=== PATIENT | male | born 1940 | race Caucasian/White ===

== ENCOUNTER 2018-11-30 18:45 | Inpatient (IN) | payer OTHER ==
--- NOTE | 2018-11-30 20:02 | PDOC ---
History of Present Illness - General Chief Complaint: Hematuria Stated Complaint: CELLULITIS/R.LEG/DIFFICULTY BREATHING Time Seen by Provider: 11/30/18 19:02 - History of Present Illness Initial Comments: Christian De Jesus is a 78yo man with a PMH of NIDDM, ? a-fib, PVD and chronic BLE edema due to venous stasis, treated earlier this year for LLE cellulitis that has now improved who presents to the ED with multiple complaints including new weeping/drainage from the RLE, significantly worsening SOB, and hematuria. He states that he has been increasingly short of breath for the past week and now finds it difficult to walk. Last month he was able to move around the house without difficulty, but he needs to stop after 5-6 feet now. He also notes orthopnea, but he says that he always sits upright to sleep and this has not changed recently. He additionally notes that he has had watery drainage from his right leg for 1-2 days. He says that he was treated for an infection in the left leg, and he "let it go way too long" before being seen, so he wanted to be seen as soon as the drainage started this time. He generally is seen in wound clinic weekly for his chronic LE edema but missed his most recent appointment. He does admit to being poorly compliant with his home medications including his lasix. Mr De Jesus additionally reports that he saw a "small amount of blood" in his urine today. He has had similar episodes in the past and was treated with antibiotics. He did not notice this prior to today. He denies any recent fevers, chills, chest pain, dysuria, or increased warmth, swelling, redness in his legs. Past History - Past Medical History Allergies/Adverse Reactions: Allergies Allergy/AdvReac Type Severity Reaction Status Date / Time No Known Allergies Allergy Verified 11/30/18 18:58 Home Medications: Ambulatory Orders Aspirin [Ecotrin] 81 mg PO DAILY 02/24/16 Metformin HCl [Glucophage] 1,000 mg PO BID 02/24/16 Ramipril 10 mg PO DAILY 02/24/16 Sitagliptin Phosphate [Januvia] 50 mg PO BID 02/24/16 Acetaminophen [Tylenol .Regular Strength -] 650 mg PO Q4H PRN #0 tablet Furosemide [Lasix -] 40 mg PO DAILY #30 tablet 03/03/16 Multivitamin [One-Daily Multi-Vitamin] 1 tab PO DAILY 09/27/18 Diabetes: Yes HTN: Yes Hypercholesterolemia: Yes - Suicide/Smoking/Psychosocial Hx Smoking History: Former smoker Have you smoked in the past 12 months: No If you are a former smoker, when did you quit?: 1989 Information on smoking cessation initiated: No Hx Alcohol Use: No Drug/Substance Use Hx: No Substance Use Type: None Review of Systems - Review of Systems Comments:: General: No fevers, no chills, no weight or appetite change, no malaise HEENT: No changes in vision, no changes in hearing, no congestion, no sore throat CV: No chest pain, no palpitations, + LE edema, +BRITO, +orthopnea Pulm: + SOB, no cough, no wheezing GI: No nausea or vomiting, no change in bowel habits, no melena : No frequency, no urgency, no dysuria, +hematuria Musc: No back pain, no joint swelling, no recent injury Skin: No rash, no lesions, no erythema Endo: No excessive thirst, no heat/cold intolerance Heme: No unusual bruising or bleeding, no swollen glands Neuro: No syncope, no numbness/tingling, no focal weakness Vasc: No claudication, +chronic venous stasis Psych: No recent change in mood, no SI or HI *Physical Exam - Vital Signs Last Vital Signs Temp Pulse Resp BP Pulse Ox 98.5 F 88 18 154/80 80 L 11/30/18 18:50 11/30/18 18:50 11/30/18 18:50 11/30/18 18:50 11/30/18 18:50 - Physical Exam Comments: General: Comfortable, no acute distress HEENT: PERRL, EOMI, MMM, voice normal, normal neck ROM Cards: Irregularly irregular, no murmur appreciated Pulm: Satting well on non-rebreather. Distant breath sounds, no distinct wheezing or crackles appreciated but difficult exam due to habitus. Abd: Soft, nontender, nondistended Ext: b/l LE swelling and skin changes c/w chronic venous stasis. RLE w/ shallow area of broken skin approx 3x5cm on lateral mid leg, clear thin weeping fluid. B /l legs and feet w/ yellow-guardado patchy lesions that appear likely fungal in appearance. No warmth, minimal pitting, no purulence. No TTP Neuro: A&Ox3, CN grossly intact, normal speech, motor/sensory grossly intact and symmetric Psych: Mood appropriate to situation ED Treatment Course - LABORATORY CBC & Chemistry Diagram: 11/30/18 20:00 11/30/18 20:00 - RADIOLOGY Radiology Studies Ordered: Category Date Time Status CHEST X-RAY PORTABLE* [RAD] Stat Radiology 11/30/18 19:32 Ordered Medical Decision Making - Medical Decision Making 11/30/18 19:43 Christian De Jesus is a 78yo man with a PMH of NIDDM, ? a-fib, PVD and chronic BLE edema due to venous stasis who presents with worsening BRITO, now only able to walk 5-6 feet over the past week, new RLE clear drainage since yesterday, and an episode of hematuria today. He was noted to be hypoxic to 80% on arrival and was placed on nonrebreather. - Ddx includes fluid overload due to CHF or CKD given worsening BRITO, leg swelling, orthopnea. Less likely infection. Leg weeping but no s/s of cellulitis including warmth, purulence, tenderness. Less likely undiagnosed lung pathology such as copd given no prior symptoms. Hematuria may be UTI or due to bladder irritation; possibly due to new onset kidney disease causing fluid overload - Sats 80% on RA on arrival. Improved to 98-100% on non-rebreather. Will monitor - CBC, CMP, BNP, trop, EKG, CXR, UA 11/30/18 20:24 - CXR completed, appears to be congested. IV lasix ordered for diuresis - EKG w/ NSR with multiple PVCs. HR 92, borderline QRS duration at 100, left axis deviation. - d/w Dr Frazier. 80mg IV lasix ordered for diuresis 11/30/18 21:28 - Labs reviewed. Notable for BUN/Cr 34/1.7 elevated from 29/1.2 in September. Trop negative. Slightly hyperkalemic at 5.3. BNP elevated at 900. - Microblog sent for admission 11/30/18 22:14 - ABG and bipap ordered due to hypoxia - Spoke to TERRANCE Nick regarding admission; will be admitted to Dr Awad's service - Pt and family updated 11/30/18 23:05 - ABG w/ CO2 at 92. - Mental status declining. When asked how he was tolerating the bipap mask, pt replied "the pages are turning too fast." - Lung exam now w/ improved breath sounds but rales at b/l bases. Will reassess after another 20-30 minutes of bipap - Appears to be diuresing well; has urinated 3x since receiving lasix - Due to CO2 retention and AMS, asked ICU team (in ED currently) to assess Mr De Jesus Discussed with Dr Frazier. Maranda Martins PGY1 *DC/Admit/Observation/Transfer Diagnosis at time of Disposition: KELLI (acute kidney injury), Hypoxia Fluid overload Qualifiers: Hypervolemia type: unspecified Qualified Code(s): E87.70 - Fluid overload, unspecified - Discharge Dispostion Condition at time of disposition: Stable Decision to Admit order: Yes - Referrals - Patient Instructions - Post Discharge Activity
[2018-11-30] MEDS ORDERED: FUROSEMIDE 40 MG/4 ML INJECTABLE VIAL IVPUSH ONE (20:04)
[2018-11-30] MEDS ORDERED: FUROSEMIDE 40 MG/4 ML INJECTABLE VIAL ONE (20:28)
[2018-11-30 20:29] LABS: EPI CELLS 0.8 /HPF (0-5/HPF); HYALINE CASTS 3 /lpf (0-8); URINE APPEARANCE CLEAR; URINE BACTERIA 5.4 /hpf (NEGATIVE); URINE BILIRUBIN NEGATIVE (NEGATIVE); URINE COLOR ORANGE; URINE GLUCOSE (UA) NEGATIVE (NEGATIVE); URINE KETONE NEGATIVE (NEGATIVE); URINE LEUK ESTERASE TRACE (NEGATIVE); URINE NITRITE NEGATIVE (NEGATIVE); URINE PROTEIN TRACE (NEGATIVE); URINE RBC 1309 /hpf (0-4); URINE UROBILINOGEN 0.2 mg/dL (0.2-1.0); URINE WBC 5 /hpf (0-5)
[2018-11-30 20:33] LABS: BASO % 1.2 % (0-2.0); EOS % 1.1 % (0-4.5); HEMATOCRIT 40.1 % (35.4-49); HEMOGLOBIN 12.5 GM/dL (11.7-16.9); MCH 28.7 pg (25.7-33.7); MCHC 31.2 g/dl (32.0-35.9); MEAN PLT VOLUME 8.7 fl (7.5-11.1); MONO % 5.5 % (3.8-10.2); NEUT % 88.2 % (42.8-82.8); PLATELET COUNT 262 K/MM3 (134-434); RBC 4.36 M/mm3 (4.00-5.60); WHITE BLOOD COUNT 10.9 K/mm3 (4.0-10.0)
[2018-11-30 20:55] LABS: ALBUMIN 3.5 g/dl (3.4-5.0); ALK PHOS 89 U/L (45-117); ANION GAP 2 MMOL/L (8-16); BILIRUBIN,TOTAL 0.6 mg/dL (0.2-1); BLOOD UREA NITROGEN 34.4 mg/dL (7-18); CALCIUM 8.8 mg/dL (8.5-10.1); CHLORIDE 101 mmol/L (98-107); CO2 38 mmol/L (21-32); CREATININE 1.7 mg/dL (0.55-1.3); GLUCOSE,RANDOM 158 mg/dL (74-106); POTASSIUM 5.3 mmol/L (3.5-5.1); SGOT/AST 32 U/L (15-37); SGPT/ALT 27 U/L (13-61); SODIUM 141 mmol/L (136-145); TOT PROT 8.2 g/dl (6.4-8.2)
[2018-11-30 22:36] LABS: ARTERIAL BLD GAS O2 SATURATION 97.3 % (95-98); ARTERIAL BLOOD GAS BASE EXCESS 5.6 meq/l (-2-2); ARTERIAL BLOOD GAS PO2 119 mmHg (80-105); ARTERIAL BLOOD GAS pH 7.22 (7.35-7.45)
[2018-11-30 22:42] LABS: ALLENS TEST POSITIVE
[2018-11-30 22:44] LABS: ARTERIAL BLOOD GAS PCO2 92.2 mmHg (35-45)
--- NOTE | 2018-11-30 22:50 | PDOC ---
Documentation entered by Lena Laboy SCRIBE, acting as scribe for Reji Frazier MD. Reij Frazier MD: This documentation has been prepared by the Benoit mazariegos Collisia, SCRIBE, under my direction and personally reviewed by me in its entirety. I confirm that the documentation accurately reflects all work, treatment, procedures, and medical decision making performed by me. Attending Attestation - Resident Resident Name: Maranda Martins - ED Attending Attestation I have performed the following: I have examined & evaluated the patient, The case was reviewed & discussed with the resident, I agree w/resident's findings & plan, Exceptions are as noted - HPI HPI: 11/30/18 21:30 The patient is a 78 year old male with a significant past medical history of diabetes, afib, PVD and chronic bilateral extremity edema secondary to venous stasis who presents to the emergency department with worsening shortness of breath and hematuria for about 2 days. The patient states that he has been experiencing difficulty walking secondary to his worsening shortness of breath. He reports being poorly compliant with his medications at home. The patient reports some blood in his urine today and endorses prior episodes in the past by which he was treated with antibiotics. The patient also endorses some drainage from his right leg for the past 2 days . He states that he was treated prior for an infection in his left leg. The patient denies any other associated symptoms he denies any fever, chills, nausea, vomiting, diarrhea, constipation or other urinary symptoms. He denies any chest pain, headache or dizziness. The patient denies any other complaints. - Physicial Exam PE: 11/30/18 22:29 Vitals: Triage Vital signs reviewed General Appearance: no acute distress, well nourished well developed, Head: Atraumatic, Neck: Supple;No Nucal rigidity Chest Wall: Nontender Cardiac: Regular rate and rhythym, no murmurs, no rubs, no gallops, Lungs: Bilateral crackles at the bases Abdomen: Soft, non distended, normal bowel sounds, non tender to palpation Extremities: Full range of motion to all extremities, bilateral lower extremity swelling with broken spin, clear serosanguineous weeping fluid bilaterally no significant warmth or cellulitis noted Neuro:Strength intact to all extremities, Sensation intact to all extremities Psych: normal mood, normal affect - Critical Care Time Total Critical Care Time: 35 Critical Care Statement: The care of this patient involved high complexity decision making to prevent further life threatening deterioration of the patient 's condition and/or to evaluate & treat vital organ system(s) failure or risk of failure. - Medical Decision Making 11/30/18 21:30 The patient is a 78 year old male with a significant past medical history of diabetes, afib, PVD and chronic bilateral extremity edema secondary to venous stasis who presents to the emergency department with worsening shortness of breath and hematuria for about 2 days. The patient will get chest x-ray, labs and EKG for further evaluation. History and examination consistent with fluid overload likely secondary to noncompliance with diuretics and CHF exacerbation IV Lasix ordered Patient's placed on a nonrebreather. Satting well on nonrebreather ABG ordered we'll place patient on BiPAP Chest x-ray demonstrates congestion labs notable for KELLI mild Reevaluation: ABG performed demonstrates CO2 retention consistent with hypercapnic respiratory failure Patient mentating slightly confused but placed on BiPAP We'll titrate up BiPAP as tolerated We'll admit to medicine on telemetry ICU consulted. Pt. Stable for tele 12/02/18 06:39
[2018-11-30 23:07] LABS: PLATELET ESTIMATE ADEQUATE
--- NOTE | 2018-12-01 | HP ---
Admitting History and Physical - Primary Care Physician PCP: Calli Awad - Admission Chief Complaint: SOB, Hematuria, Drainage from RLE History of Present Illness: This is a 78 y/o man with a PMHx of Chronic Venous Stasis B/L LE, PVD, HTN, HLD , NIDDM, Former Smoker. Who presents to the ED with his spouse for increased SOB , orthopnea, hematuria, clear- yellow drainage to RLE. Patient reports being able to walk only 5-6 steps without becoming SOB. He reports being only able to sleep in a recliner due to his orthopnea. He admits to not taking his Lasix daily. Patient also reports having hematuria 3 weeks ago then it reoccurred today. Patient's spouse reports that the patient missed his wound care appointment to have his legs wrapped, and she noted clear drainage to RLE yesterday. The patient denies fever, chills, cough, dizziness, MONTENEGRO, CP, palpitations, AP, N/V/D, constipation, melena, hematochezia, dysuria. History Source: Patient, Family Member Limitations to Obtaining History: No Limitations - Past Medical History Cardiovascular: Yes: HTN, Hyperlipdemia, Other (chronic venous stasis) Infectious Disease: Yes: MRSA (2016) Endocrine: Yes: Diabetes Mellitus - Smoking History Smoking history: Former smoker Have you smoked in the past 12 months: No If you are a former smoker, when did you quit?: 1989 - Alcohol/Substance Use Hx Alcohol Use: No History of Substance Use: reports: None - Social History Usual Living Arrangement: Yes: With Spouse ADL: Independent History of Recent Travel: No Home Medications - Allergies Allergies/Adverse Reactions: Allergies Allergy/AdvReac Type Severity Reaction Status Date / Time No Known Allergies Allergy Verified 11/30/18 18:58 - Home Medications Home Medications: Ambulatory Orders Aspirin [Ecotrin] 81 mg PO DAILY 02/24/16 Metformin HCl [Glucophage] 1,000 mg PO BID 02/24/16 Ramipril 10 mg PO DAILY 02/24/16 Sitagliptin Phosphate [Januvia] 50 mg PO BID 02/24/16 Acetaminophen [Tylenol .Regular Strength -] 650 mg PO Q4H PRN #0 tablet Furosemide [Lasix -] 40 mg PO DAILY #30 tablet 03/03/16 Multivitamin [One-Daily Multi-Vitamin] 1 tab PO DAILY 04/19/19 Family Disease History - Family Disease History Family History: Unable to Obtain Review of Systems - Review of Systems Constitutional: reports: No Symptoms Eyes: reports: No Symptoms HENT: reports: No Symptoms Neck: reports: No Symptoms Cardiovascular: reports: Edema, Shortness of Breath Respiratory: reports: Orthopnea, SOB, SOB on Exertion, Wheezing Gastrointestinal: reports: No Symptoms Genitourinary: reports: Hematuria Breasts: reports: No Symptoms Reported Musculoskeletal: reports: No Symptoms Integumentary: reports: Blister, Erythema, Wound Neurological: reports: No Symptoms Endocrine: reports: No Symptoms Hematology/Lymphatic: reports: No Symptoms Psychiatric: reports: No Symptoms Pain Intensity: 0 Physical Examination Vital Signs: Vital Signs Temperature 98.5 F 11/30/18 18:50 Pulse Rate 85 11/30/18 23:02 Respiratory Rate 20 11/30/18 21:50 Blood Pressure 128/55 L 11/30/18 21:50 O2 Sat by Pulse Oximetry (%) 100 11/30/18 23:02 Constitutional: Yes: Well Nourished, Mild Distress, Obese Eyes: Yes: WNL, Conjunctiva Clear, EOM Intact, PERRL HENT: Yes: WNL, Atraumatic, Normocephalic Neck: Yes: WNL, Supple, Trachea Midline Cardiovascular: Yes: Regular Rate and Rhythm, S1, S2 Respiratory: Yes: Diminished, On BiPap, Rhonchi, SOB, SOB on Exertion Gastrointestinal: Yes: WNL, Normal Bowel Sounds, Soft, Abdomen, Obese Renal/: Yes: WNL Breast(s): Yes: WNL Musculoskeletal: Yes: WNL Extremities: Yes: Erythema Edema: Yes Edema: LLE: 3+, RLE: 3+ Peripheral Pulses WNL: Yes Integumentary: Yes: Erythema, Venous Stasis Changes Wound/Incision: Yes: Other (yellow plaque lesions to RLE) Neurological: Yes: WNL, Alert, Oriented, Cran Nerves II-XII Intact ...Motor Strength: WNL Psychiatric: Yes: WNL, Alert, Oriented Labs: CBC, BMP 11/30/18 20:00 11/30/18 20:00 Laboratory Results - last 24 hr 11/30/18 11/30/18 11/30/18 20:00 20:00 20:00 WBC 10.9 H RBC 4.36 Hgb 12.5 Hct 40.1 D MCV 92.0 MCH 28.7 MCHC 31.2 L RDW 16.0 H Plt Count 262 MPV 8.7 D Absolute Neuts (auto) 9.6 H Neutrophils % 88.2 H Neutrophils % (Manual) 78.0 Band Neutrophils % 3.0 Lymphocytes % 4.0 L D Lymphocytes % (Manual) 8.0 Monocytes % 5.5 Monocytes % (Manual) 10 Eosinophils % 1.1 Eosinophils % (Manual) 1.0 Basophils % 1.2 D Nucleated RBC % 0 Platelet Estimate Adequate Anticoagulation Therapy Puncture Site ABG pH ABG pCO2 at Pt Temp ABG pO2 at Pt Temp ABG HCO3 ABG O2 Sat (Measured) ABG O2 Content ABG Base Excess Julius Test O2 Delivery Device Oxygen Flow Rate Vent Mode Vent Rate Mechanical Rate Pressure Support Vent Sodium 141 Potassium 5.3 H Chloride 101 Carbon Dioxide 38 H Anion Gap 2 L BUN 34.4 H Creatinine 1.7 H Est GFR (CKD-EPI)AfAm 44.10 Est GFR (CKD-EPI)NonAf 38.05 Random Glucose 158 H Calcium 8.8 Total Bilirubin 0.6 AST 32 ALT 27 Alkaline Phosphatase 89 Creatine Kinase 90 Troponin I < 0.02 B-Natriuretic Peptide 899.5 H Total Protein 8.2 Albumin 3.5 Urine Color Urine Appearance Urine pH Ur Specific [place] Urine Protein Urine Glucose (UA) Urine Ketones Urine Blood Urine Nitrite Urine Bilirubin Urine Urobilinogen Ur Leukocyte Esterase Urine WBC (Auto) Urine RBC (Auto) Urine Casts (Auto) U Epithel Cells (Auto) Urine Bacteria (Auto) 11/30/18 11/30/18 20:14 22:29 WBC RBC Hgb Hct MCV MCH MCHC RDW Plt Count MPV Absolute Neuts (auto) Neutrophils % Neutrophils % (Manual) Band Neutrophils % Lymphocytes % Lymphocytes % (Manual) Monocytes % Monocytes % (Manual) Eosinophils % Eosinophils % (Manual) Basophils % Nucleated RBC % Platelet Estimate Anticoagulation Therapy No Result Required. Puncture Site Left radial ABG pH 7.22 L ABG pCO2 at Pt Temp 92.2 H* ABG pO2 at Pt Temp 119 H ABG HCO3 36.5 H ABG O2 Sat (Measured) 97.3 ABG O2 Content 18.4 ABG Base Excess 5.6 H Julius Test Positive O2 Delivery Device No Result Required. Oxygen Flow Rate Yes Vent Mode No Result Required. Vent Rate No Result Required. Mechanical Rate No Result Required. Pressure Support Vent No Result Required. Sodium Potassium Chloride Carbon Dioxide Anion Gap BUN Creatinine Est GFR (CKD-EPI)AfAm Est GFR (CKD-EPI)NonAf Random Glucose Calcium Total Bilirubin AST ALT Alkaline Phosphatase Creatine Kinase Troponin I B-Natriuretic Peptide Total Protein Albumin Urine Color [place] Urine Appearance Clear Urine pH 5.0 Ur Specific [place] 1.010 Urine Protein Trace Urine Glucose (UA) Negative Urine Ketones Negative Urine Blood 3+ H Urine Nitrite Negative Urine Bilirubin Negative Urine Urobilinogen 0.2 Ur Leukocyte Esterase Trace Urine WBC (Auto) 5 Urine RBC (Auto) 1309 Urine Casts (Auto) 3 U Epithel Cells (Auto) 0.8 Urine Bacteria (Auto) 5.4 Intake & Output 11/28/18 11/29/18 11/30/18 12/01/18 23:59 23:59 23:59 23:59 Intake Total 500 Output Total 2000 Balance -1500 Weight 100 kg Imaging - Results Chest X-ray: Image Reviewed Problem List - Problems (1) CHF exacerbation Code(s): I50.9 - HEART FAILURE, UNSPECIFIED (2) Acute and chronic respiratory failure with hypercapnia Code(s): J96.22 - ACUTE AND CHRONIC RESPIRATORY FAILURE WITH HYPERCAPNIA (3) Venous stasis dermatitis of lower extremity Code(s): I87.2 - VENOUS INSUFFICIENCY (CHRONIC) (PERIPHERAL) (4) KELLI (acute kidney injury) Code(s): N17.9 - ACUTE KIDNEY FAILURE, UNSPECIFIED (5) Hx MRSA infection Code(s): Z86.14 - PERSONAL HISTORY OF METHICILLIN RESIS STAPH INFECTION (6) Lymphedema Code(s): I89.0 - LYMPHEDEMA, NOT ELSEWHERE CLASSIFIED (7) Diabetes Code(s): E11.9 - TYPE 2 DIABETES MELLITUS WITHOUT COMPLICATIONS Qualifiers: Diabetes mellitus complication status: with circulatory complication (8) Hypertension Code(s): I10 - ESSENTIAL (PRIMARY) HYPERTENSION Assessment/Plan This is a 78 y/o man with a PMHx of Chronic Venous Stasis Ulcers B/L LE, PVD, HTN, HLD, NIDDM, Obesity, Former Smoker. Admitted for CHF Excerbation, Acute Respiratory Failure with Hypoxia and Hypercapnia, KELLI, Hematuria, Chronic Venous Stasis Ulcers for further evaluation of their emergent condition. Plan: Admit M/S Continue Bipap Titrate per ABG Appreciate Pulm consult Appreciate Cardiology consult Appreciate ID consult Wound Care Will not empirically treat for Cellulitis secondary to no leukocytosis, pt. is afebrile will defer to ID Monitor CBC, BMP Strict INOs Daily Weight Continue home meds Elevate extremities Isolation Precautions- MRSA hx FEN- Fluid restriction, Replete lytes prn, Low Na Diabetic Diet DVT ppx- OOB, TEDs, Heparin SQ Dispo: Requires Inpatient Care Visit type - Emergency Visit Emergency Visit: Yes ED Registration Date: 11/30/18 Care time: The patient presented to the Emergency Department on the above date and was hospitalized for further evaluation of their emergent condition. - New Patient This patient is new to me today: Yes Date on this admission: 11/30/18 - Critical Care Critical Care patient: No
[2018-12-01 07:20] LABS: BASO % 0.7 % (0-2.0); EOS % 0.6 % (0-4.5); HEMATOCRIT 35.9 % (35.4-49); HEMOGLOBIN 11.3 GM/dL (11.7-16.9); LYMPH % 5.7 % (8-40); MCH 28.7 pg (25.7-33.7); MCHC 31.6 g/dl (32.0-35.9); MEAN CELL VOLUME 90.8 fl (80-96); MEAN PLT VOLUME 8.5 fl (7.5-11.1); MONO % 8.6 % (3.8-10.2); NEUT % 84.4 % (42.8-82.8); PLATELET COUNT 207 K/MM3 (134-434); RBC 3.95 M/mm3 (4.00-5.60); WHITE BLOOD COUNT 10.5 K/mm3 (4.0-10.0)
[2018-12-01 07:40] LABS: BLOOD UREA NITROGEN 35.4 mg/dL (7-18); CALCIUM 8.3 mg/dL (8.5-10.1); CREATININE 1.5 mg/dL (0.55-1.3); MAGNESIUM 2.3 mg/dL (1.8-2.4); PHOSPHOROUS 4.2 mg/dL (2.5-4.9); POTASSIUM 4.5 mmol/L (3.5-5.1)
--- NOTE | 2018-12-01 09:13 | CON.CARD ---
Consult Consult Specialty:: Cardiology Referred by:: Dr. Nick Reason for Consultation:: BRITO, edema - History of Present Illness Chief Complaint: 2 weeks BRITO History of Present Illness: 78 y/o man with a PMHx of Chronic Venous Stasis B/L LE, PVD, HTN, HLD, NIDDM, Former Smoker. Who presents to the ED with his spouse for increased SOB, orthopnea, hematuria, clear- yellow drainage to RLE. Patient reports being able to walk only 5-6 steps without becoming SOB. He reports being only able to sleep in a recliner due to his orthopnea. He admits to not taking his Lasix daily. Patient also reports having hematuria 3 weeks ago then it reoccurred today. Patient's spouse reports that the patient missed his wound care appointment to have his legs wrapped, and she noted clear drainage to RLE yesterday. The patient denies fever, chills, cough, dizziness, [place], CP, palpitations, AP, N/V/D, constipation, melena, hematochezia, dysuria. He denies chest pain. - History Source History Provided By: Patient - Past Medical History Cardio/Vascular: Yes: HTN, Hyperlipdemia, Other (chronic venous stasis) Infectious Disease: Yes: MRSA (2015) Endocrine: Yes: Diabetes Mellitus - Alcohol/Substance Use Hx Alcohol Use: No History of Substance Use: reports: None - Smoking History Smoking history: Former smoker Have you smoked in the past 12 months: No If you are a former smoker, when did you quit?: 1989 - Social History Usual Living Arrangement: With Spouse ADL: Independent History of Recent Travel: No Home Medications - Allergies Allergies/Adverse Reactions: Allergies Allergy/AdvReac Type Severity Reaction Status Date / Time No Known Allergies Allergy Verified 11/30/18 18:58 - Home Medications Home Medications: Ambulatory Orders Aspirin [Ecotrin] 81 mg PO DAILY 02/24/16 Metformin HCl [Glucophage] 1,000 mg PO BID 02/24/16 Ramipril 10 mg PO DAILY 02/24/16 Sitagliptin Phosphate [Januvia] 50 mg PO BID 02/24/16 Acetaminophen [Tylenol .Regular Strength -] 650 mg PO Q4H PRN #0 tablet Furosemide [Lasix -] 40 mg PO DAILY #30 tablet 03/03/16 Multivitamin [One-Daily Multi-Vitamin] 1 tab PO DAILY 09/27/18 Family Disease History - Family Disease History Family History: Unremarkable (not pertinent to this presentation) Review of Systems - Review of Systems Cardiovascular: reports: Edema, Shortness of Breath Respiratory: reports: Exercise Intolerance, SOB on Exertion Gastrointestinal: denies: No Symptoms, Abdominal Pain, Bloating, Constipation, Diarrhea, Dysphagia, Indigestion, Melena, Nausea, Rectal Bleeding, Vomiting, Vomiting Blood, Other Genitourinary: denies: No Symptoms, Burning, Discharge, Dysuria, Flank Pain, Frequency, Hematuria, Incontinence, Lesions, Menses, Pain, Testicular Mass, Testicular Pain, Testicular Swelling, Urgency, Vaginal Bleeding, Other Breasts: denies: No Symptoms Reported, See HPI, Breast Implants, Discharge from Nipple, Lumps, Pain, Skin Changes, Other Musculoskeletal: denies: No Symptoms, Back Pain, Crepitus, Decreased ROM, Extremity Pain, Joint Pain, Joint Swelling, Muscle Pain, Muscle Cramps, Muscle Weakness, Other Integumentary: denies: No Symptoms, Blister, Bruising, Change in Color, Eczema, Erythema, Incision, Lesions, Lump, Pallor, Pruritis, Rash, Wound, Other Neurological: denies: No Symptoms, Change in LOC, Change in Speech, Confusion, Dizziness, Headache, Incoordination, Numbness, Parasthesia, Pre-Existing Deficit , Seizure, Syncope, Tremors, Unsteady Gait, Weakness, Other Endocrine: denies: No Symptoms, Excessive Sweating, Flushing, Increased Hunger, Increased Thirst, Intolerance to Cold, Intolerance to Heat, Unexplained Weight Gain, Unexplained Weight Loss, Other Hematology/Lymphatic: denies: No Symptoms, Easily Bruised, Excessive Bleeding, Swollen Glands, Other Psychiatric: denies: No Symptoms, Altered Sleep Pattern, Anxiety, Depression, Hallucinations, Panic, Paranoia, Suicidal, Other - Risk Factors Known Risk Factors: Yes: Diabetes Mellitus, Hypertension, Smoking Vital Signs: Vital Signs Temperature 98.0 F 12/01/18 06:17 Pulse Rate 83 12/01/18 07:44 Respiratory Rate 20 12/01/18 07:44 Blood Pressure 112/52 L 12/01/18 07:44 O2 Sat by Pulse Oximetry (%) 93 L 12/01/18 08:49 Constitutional: Yes: Calm Neck: Yes: Trachea Midline Respiratory: Yes: Other (rales at bas) Gastrointestinal: Yes: Soft, Abdomen, Obese Cardiovascular: Yes: Regular Rate and Rhythm Edema: Yes Edema: LLE: 3+ (venous stasis), RLE: 3+ (venous stasis) Peripheral Pulses WNL: Yes Neurological: Yes: Alert, Oriented - Other Data Labs, Other Data: CBC, BMP 12/01/18 06:30 12/01/18 06:30 Troponin, BNP 11/30/18 11/30/18 20:00 20:00 Troponin I < 0.02 B-Natriuretic Peptide 899.5 H Troponin, BNP 11/30/18 11/30/18 20:00 20:00 Troponin I < 0.02 B-Natriuretic Peptide 899.5 H Laboratory Tests 11/30/18 11/30/18 12/01/18 20:00 20:00 06:30 WBC 10.5 H Hgb 11.3 L Plt Count 207 D Sodium Potassium BUN Creatinine Random Glucose Calcium Phosphorus Magnesium Creatine Kinase 90 Troponin I < 0.02 B-Natriuretic Peptide 899.5 H 12/01/18 06:30 WBC Hgb Plt Count Sodium 144 Potassium 4.5 BUN 35.4 H Creatinine 1.5 H Random Glucose 141 H Calcium 8.3 L Phosphorus 4.2 Magnesium 2.3 Creatine Kinase Troponin I B-Natriuretic Peptide NSR, Left axis, VPCs. Echo: Pending Imaging - Results Chest X-ray: Image Reviewed (increased PVC) EKG: Image Reviewed Assessment/Plan IMP: 1. Acute on chronic CHF 2. Chronic HTN, suspected hypertensive heart disease 3. DM 4. Chronic venous stasis. 5. Acute on chronic renal insuffiency REC: 1. IV lasix, daily weights and BMP to follow renal fxn 2. Telemetry 3. Echo for EF assessment. 4. Cont JOSESITO-I 5. DVT prophylaxis. 6. Treatment of venous stasis and possible superimposed cellulitis as per PMD 7. When euvolemic, will need ischemic evaluation. Thank you.
--- NOTE | 2018-12-01 09:14 | EKG ---
Test Reason : Blood Pressure : / mmHG Vent. Rate : 092 BPM Atrial Rate : 092 BPM P-R Int : 170 ms QRS Dur : 100 ms QT Int : 376 ms P-R-T Axes : 057 -57 079 degrees QTc Int : 464 ms SINUS RHYTHM WITH FREQUENT PREMATURE VENTRICULAR COMPLEXES POSSIBLE LEFT ATRIAL ENLARGEMENT LEFT AXIS DEVIATION ABNORMAL ECG WHEN COMPARED WITH ECG OF 04-OCT-2015 07:02, QT HAS LENGTHENED Confirmed by JONG CARRILLO, FABIANA ([id number]) on 12/01/2018 9:13:47 AM Referred By: Confirmed By:FABIANA SUNSHINE MD
--- NOTE | 2018-12-01 09:22 | PN ---
Progress Note (short form) - Note Progress Note: Examined in ER this AM Awake and alert telling me about his , he is aware of surroundings has sob he is sob when speaking has weaping of skin in legs pain in right leg Vital Signs - 24 hr 11/30/18 11/30/18 11/30/18 18:50 19:05 19:06 Temperature 98.5 F Pulse Rate 88 Pulse Rate [ Apical] Pulse Rate [ Left Apical] Respiratory 18 Rate Blood Pressure 154/80 Blood Pressure [Left Arm] O2 Sat by Pulse 80 L 62 L 93 L Oximetry (%) 11/30/18 11/30/18 11/30/18 19:07 20:18 20:32 Temperature Pulse Rate Pulse Rate [ Apical] Pulse Rate [ 88 87 42 L Left Apical] Respiratory 20 Rate Blood Pressure Blood Pressure 153/73 [Left Arm] O2 Sat by Pulse 99 100 99 Oximetry (%) 11/30/18 11/30/18 11/30/18 21:06 21:30 21:49 Temperature 98.1 F Pulse Rate 82 Pulse Rate [ Apical] Pulse Rate [ 89 87 Left Apical] Respiratory 20 20 18 Rate Blood Pressure 160/90 Blood Pressure 149/62 133/67 [Left Arm] O2 Sat by Pulse 98 100 Oximetry (%) 11/30/18 11/30/18 11/30/18 21:50 22:50 23:02 Temperature Pulse Rate 85 Pulse Rate [ Apical] Pulse Rate [ 92 H Left Apical] Respiratory 20 Rate Blood Pressure Blood Pressure 128/55 L [Left Arm] O2 Sat by Pulse 100 100 100 Oximetry (%) 12/01/18 12/01/18 12/01/18 00:30 01:49 06:17 Temperature 97.9 F 98.0 F Pulse Rate 83 Pulse Rate [ Apical] Pulse Rate [ 90 Left Apical] Respiratory 16 16 Rate Blood Pressure 107/67 Blood Pressure 127/63 [Left Arm] O2 Sat by Pulse 93 L 98 Oximetry (%) 12/01/18 12/01/18 07:44 08:49 Temperature Pulse Rate Pulse Rate [ 83 Apical] Pulse Rate [ Left Apical] Respiratory 20 Rate Blood Pressure Blood Pressure 112/52 L [Left Arm] O2 Sat by Pulse 98 93 L Oximetry (%) Current Medications Generic Name Dose Route Start Last Admin Trade Name Freq PRN Reason Stop Dose Admin Aspirin 81 mg 12/01/18 10:00 Ecotrin - PO DAILY SHRADDHA Furosemide 40 mg 12/01/18 14:00 Lasix Injection - IVPUSH BID@0600,1400 [facility] Multivitamins/Minerals/Vitamin C 1 tab 12/01/18 10:00 Tab-A-Vit - PO DAILY SHRADDHA Ramipril 10 mg 12/01/18 10:00 Altace - PO DAILY SHRADDHA Sitagliptin Phosphate 50 mg 12/01/18 07:00 Januvia - PO BIDAC [facility] Laboratory Results - last 24 hr 11/30/18 11/30/18 11/30/18 20:00 20:00 20:00 WBC 10.9 H RBC 4.36 Hgb 12.5 Hct 40.1 D MCV 92.0 MCH 28.7 MCHC 31.2 L RDW 16.0 H Plt Count 262 MPV 8.7 D Absolute Neuts (auto) 9.6 H Neutrophils % 88.2 H Neutrophils % (Manual) 78.0 Band Neutrophils % 3.0 Lymphocytes % 4.0 L D Lymphocytes % (Manual) 8.0 Monocytes % 5.5 Monocytes % (Manual) 10 Eosinophils % 1.1 Eosinophils % (Manual) 1.0 Basophils % 1.2 D Nucleated RBC % 0 Platelet Estimate Adequate Anticoagulation Therapy Puncture Site ABG pH ABG pCO2 at Pt Temp ABG pO2 at Pt Temp ABG HCO3 ABG O2 Sat (Measured) ABG O2 Content ABG Base Excess Julius Test O2 Delivery Device Oxygen Flow Rate Vent Mode Vent Rate Mechanical Rate Pressure Support Vent Sodium 141 Potassium 5.3 H Chloride 101 Carbon Dioxide 38 H Anion Gap 2 L BUN 34.4 H Creatinine 1.7 H Est GFR (CKD-EPI)AfAm 44.10 Est GFR (CKD-EPI)NonAf 38.05 POC Glucometer Random Glucose 158 H Calcium 8.8 Phosphorus Magnesium Total Bilirubin 0.6 AST 32 ALT 27 Alkaline Phosphatase 89 Creatine Kinase 90 Troponin I < 0.02 B-Natriuretic Peptide 899.5 H Total Protein 8.2 Albumin 3.5 Urine Color Urine Appearance Urine pH Ur Specific [place] Urine Protein Urine Glucose (UA) Urine Ketones Urine Blood Urine Nitrite Urine Bilirubin Urine Urobilinogen Ur Leukocyte Esterase Urine WBC (Auto) Urine RBC (Auto) Urine Casts (Auto) U Epithel Cells (Auto) Urine Bacteria (Auto) 06/22/19 06/22/19 06/23/19 20:14 22:29 06:09 WBC RBC Hgb Hct MCV MCH MCHC RDW Plt Count MPV Absolute Neuts (auto) Neutrophils % Neutrophils % (Manual) Band Neutrophils % Lymphocytes % Lymphocytes % (Manual) Monocytes % Monocytes % (Manual) Eosinophils % Eosinophils % (Manual) Basophils % Nucleated RBC % Platelet Estimate Anticoagulation Therapy No Result Required. Puncture Site Left radial ABG pH 7.22 L ABG pCO2 at Pt Temp 92.2 H* ABG pO2 at Pt Temp 119 H ABG HCO3 36.5 H ABG O2 Sat (Measured) 97.3 ABG O2 Content 18.4 ABG Base Excess 5.6 H Julius Test Positive O2 Delivery Device No Result Required. Oxygen Flow Rate Yes Vent Mode No Result Required. Vent Rate No Result Required. Mechanical Rate No Result Required. Pressure Support Vent No Result Required. Sodium Potassium Chloride Carbon Dioxide Anion Gap BUN Creatinine Est GFR (CKD-EPI)AfAm Est GFR (CKD-EPI)NonAf POC Glucometer 142 Random Glucose Calcium Phosphorus Magnesium Total Bilirubin AST ALT Alkaline Phosphatase Creatine Kinase Troponin I B-Natriuretic Peptide Total Protein Albumin Urine Color [place] Urine Appearance Clear Urine pH 5.0 Ur Specific [place] 1.010 Urine Protein Trace Urine Glucose (UA) Negative Urine Ketones Negative Urine Blood 3+ H Urine Nitrite Negative Urine Bilirubin Negative Urine Urobilinogen 0.2 Ur Leukocyte Esterase Trace Urine WBC (Auto) 5 Urine RBC (Auto) 1309 Urine Casts (Auto) 3 U Epithel Cells (Auto) 0.8 Urine Bacteria (Auto) 5.4 12/01/18 12/01/18 06:30 06:30 WBC 10.5 H RBC 3.95 L Hgb 11.3 L Hct 35.9 MCV 90.8 MCH 28.7 MCHC 31.6 L RDW 16.0 H Plt Count 207 D MPV 8.5 Absolute Neuts (auto) 8.8 H Neutrophils % 84.4 H Neutrophils % (Manual) Band Neutrophils % Lymphocytes % 5.7 L D Lymphocytes % (Manual) Monocytes % 8.6 Monocytes % (Manual) Eosinophils % 0.6 Eosinophils % (Manual) Basophils % 0.7 Nucleated RBC % 0 Platelet Estimate Anticoagulation Therapy Puncture Site ABG pH ABG pCO2 at Pt Temp ABG pO2 at Pt Temp ABG HCO3 ABG O2 Sat (Measured) ABG O2 Content ABG Base Excess Julius Test O2 Delivery Device Oxygen Flow Rate Vent Mode Vent Rate Mechanical Rate Pressure Support Vent Sodium 144 Potassium 4.5 Chloride 101 Carbon Dioxide 37 H Anion Gap 6 L BUN 35.4 H Creatinine 1.5 H Est GFR (CKD-EPI)AfAm 51.31 Est GFR (CKD-EPI)NonAf 44.27 POC Glucometer Random Glucose 141 H Calcium 8.3 L Phosphorus 4.2 Magnesium 2.3 Total Bilirubin AST ALT Alkaline Phosphatase Creatine Kinase Troponin I B-Natriuretic Peptide Total Protein Albumin Urine Color Urine Appearance Urine pH Ur Specific [place] Urine Protein Urine Glucose (UA) Urine Ketones Urine Blood Urine Nitrite Urine Bilirubin Urine Urobilinogen Ur Leukocyte Esterase Urine WBC (Auto) Urine RBC (Auto) Urine Casts (Auto) U Epithel Cells (Auto) Urine Bacteria (Auto) obese S1 S2 RRR Lungs decreased breath sounds B/L crackles+ abd- soft, obese, NT edema + rt leg erythema, edema >left chronic venous changes PLAN on BIPAP iv antibiotics pulmonary ,ID eval iv lasix continue with meds Problem List - Problems (1) KELLI (acute kidney injury) Code(s): N17.9 - ACUTE KIDNEY FAILURE, UNSPECIFIED (2) CHF exacerbation Code(s): I50.9 - HEART FAILURE, UNSPECIFIED (3) Fluid overload Code(s): E87.70 - FLUID OVERLOAD, UNSPECIFIED Qualifiers: Hypervolemia type: unspecified Qualified Code(s): E87.70 - Fluid overload, unspecified (4) Cellulitis of right leg Code(s): L03.115 - CELLULITIS OF RIGHT LOWER LIMB (5) Hypertension Code(s): I10 - ESSENTIAL (PRIMARY) HYPERTENSION
[2018-12-01] MEDS ORDERED: PIPERACILLIN/TAZOB 4.5 GM 4.5 GM in DEXTROSE 5%-WATER 100 ML IVPB SCH ×2 (10:45→11:00)
--- NOTE | 2018-12-01 10:45 | PN ---
Teaching Attending Note Name of Resident: Raheem Castanon ATTENDING PHYSICIAN STATEMENT I saw and evaluated the patient. I reviewed the resident's note and discussed the case with the resident. I agree with the resident's findings and plan as documented. SUBJECTIVE: Patient seen and examined in the ER. 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 COPD). Admitted via the ER due to increased SOB, orthopnea, and yellow drainage of RLE. Placed on NIPPV support and was apparently AAO x 3. On exam he is drowsy but arousble. He is able to tell me his name but does not know where he is and his mental status is now alternated within the hour. I placed him back on NIPPV support and the settings were adjusted for anticipated hypercapnea. Intake & Output 11/28/18 11/29/18 11/30/18 12/01/18 23:59 23:59 23:59 23:59 Intake Total 500 120 Output Total 2000 1000 Balance -1500 -880 Weight 220 lb 7.396 oz Last Vital Signs Temp Pulse Resp BP Pulse Ox 98.0 F 83 20 112/52 L 93 L 12/01/18 06:17 12/01/18 07:44 12/01/18 07:44 12/01/18 07:44 12/01/18 08:49 Active Medications Aspirin (Ecotrin -) 81 mg PO DAILY SHRADDHA Furosemide (Lasix Injection -) 40 mg IVPUSH BID@0600,1400 SHRADD[facility] Multivitamins/Minerals/Vitamin C (Tab-A-Vit -) 1 tab PO DAILY SHRADDHA Ramipril (Altace -) 10 mg PO DAILY SHRADDHA Sitagliptin Phosphate (Januvia -) 50 mg PO BIDAC SHRADDHA Constitutional: Yes: Drowsy but arousable, confused Neck: Yes: Trachea Midline Respiratory: Yes: few scattered rhonchi Gastrointestinal: Yes: Soft, Abdomen, Obese Cardiovascular: Yes: Regular Rate and Rhythm Edema: Yes Edema: LLE: 3+ (venous stasis), RLE: 3+ (venous stasis) Peripheral Pulses WNL: Yes Neurological: Yes: Confused, non-focal - Other Data Labs, Other Data: Laboratory Results - last 24 hr 11/30/18 11/30/18 11/30/18 20:00 20:00 20:00 WBC 10.9 H RBC 4.36 Hgb 12.5 Hct 40.1 D MCV 92.0 MCH 28.7 MCHC 31.2 L RDW 16.0 H Plt Count 262 MPV 8.7 D Absolute Neuts (auto) 9.6 H Neutrophils % 88.2 H Neutrophils % (Manual) 78.0 Band Neutrophils % 3.0 Lymphocytes % 4.0 L D Lymphocytes % (Manual) 8.0 Monocytes % 5.5 Monocytes % (Manual) 10 Eosinophils % 1.1 Eosinophils % (Manual) 1.0 Basophils % 1.2 D Nucleated RBC % 0 Platelet Estimate Adequate Anticoagulation Therapy Puncture Site ABG pH ABG pCO2 at Pt Temp ABG pO2 at Pt Temp ABG HCO3 ABG O2 Sat (Measured) ABG O2 Content ABG Base Excess Julius Test O2 Delivery Device Oxygen Flow Rate Vent Mode Vent Rate Mechanical Rate Pressure Support Vent Sodium 141 Potassium 5.3 H Chloride 101 Carbon Dioxide 38 H Anion Gap 2 L BUN 34.4 H Creatinine 1.7 H Est GFR (CKD-EPI)AfAm 44.10 Est GFR (CKD-EPI)NonAf 38.05 POC Glucometer Random Glucose 158 H Calcium 8.8 Phosphorus Magnesium Total Bilirubin 0.6 AST 32 ALT 27 Alkaline Phosphatase 89 Creatine Kinase 90 Troponin I < 0.02 B-Natriuretic Peptide 899.5 H Total Protein 8.2 Albumin 3.5 Urine Color Urine Appearance Urine pH Ur Specific [place] Urine Protein Urine Glucose (UA) Urine Ketones Urine Blood Urine Nitrite Urine Bilirubin Urine Urobilinogen Ur Leukocyte Esterase Urine WBC (Auto) Urine RBC (Auto) Urine Casts (Auto) U Epithel Cells (Auto) Urine Bacteria (Auto) 11/30/18 11/30/18 12/01/18 20:14 22:29 06:09 WBC RBC Hgb Hct MCV MCH MCHC RDW Plt Count MPV Absolute Neuts (auto) Neutrophils % Neutrophils % (Manual) Band Neutrophils % Lymphocytes % Lymphocytes % (Manual) Monocytes % Monocytes % (Manual) Eosinophils % Eosinophils % (Manual) Basophils % Nucleated RBC % Platelet Estimate Anticoagulation Therapy No Result Required. Puncture Site Left radial ABG pH 7.22 L ABG pCO2 at Pt Temp 92.2 H* ABG pO2 at Pt Temp 119 H ABG HCO3 36.5 H ABG O2 Sat (Measured) 97.3 ABG O2 Content 18.4 ABG Base Excess 5.6 H Julius Test Positive O2 Delivery Device No Result Required. Oxygen Flow Rate Yes Vent Mode No Result Required. Vent Rate No Result Required. Mechanical Rate No Result Required. Pressure Support Vent No Result Required. Sodium Potassium Chloride Carbon Dioxide Anion Gap BUN Creatinine Est GFR (CKD-EPI)AfAm Est GFR (CKD-EPI)NonAf POC Glucometer 142 Random Glucose Calcium Phosphorus Magnesium Total Bilirubin AST ALT Alkaline Phosphatase Creatine Kinase Troponin I B-Natriuretic Peptide Total Protein Albumin Urine Color [place] Urine Appearance Clear Urine pH 5.0 Ur Specific [place] 1.010 Urine Protein Trace Urine Glucose (UA) Negative Urine Ketones Negative Urine Blood 3+ H Urine Nitrite Negative Urine Bilirubin Negative Urine Urobilinogen 0.2 Ur Leukocyte Esterase Trace Urine WBC (Auto) 5 Urine RBC (Auto) 1309 Urine Casts (Auto) 3 U Epithel Cells (Auto) 0.8 Urine Bacteria (Auto) 5.4 12/01/18 12/01/18 06:30 06:30 WBC 10.5 H RBC 3.95 L Hgb 11.3 L Hct 35.9 MCV 90.8 MCH 28.7 MCHC 31.6 L RDW 16.0 H Plt Count 207 D MPV 8.5 Absolute Neuts (auto) 8.8 H Neutrophils % 84.4 H Neutrophils % (Manual) Band Neutrophils % Lymphocytes % 5.7 L D Lymphocytes % (Manual) Monocytes % 8.6 Monocytes % (Manual) Eosinophils % 0.6 Eosinophils % (Manual) Basophils % 0.7 Nucleated RBC % 0 Platelet Estimate Anticoagulation Therapy Puncture Site ABG pH ABG pCO2 at Pt Temp ABG pO2 at Pt Temp ABG HCO3 ABG O2 Sat (Measured) ABG O2 Content ABG Base Excess Julius Test O2 Delivery Device Oxygen Flow Rate Vent Mode Vent Rate Mechanical Rate Pressure Support Vent Sodium 144 Potassium 4.5 Chloride 101 Carbon Dioxide 37 H Anion Gap 6 L BUN 35.4 H Creatinine 1.5 H Est GFR (CKD-EPI)AfAm 51.31 Est GFR (CKD-EPI)NonAf 44.27 POC Glucometer Random Glucose 141 H Calcium 8.3 L Phosphorus 4.2 Magnesium 2.3 Total Bilirubin AST ALT Alkaline Phosphatase Creatine Kinase Troponin I B-Natriuretic Peptide Total Protein Albumin Urine Color Urine Appearance Urine pH Ur Specific [place] Urine Protein Urine Glucose (UA) Urine Ketones Urine Blood Urine Nitrite Urine Bilirubin Urine Urobilinogen Ur Leukocyte Esterase Urine WBC (Auto) Urine RBC (Auto) Urine Casts (Auto) U Epithel Cells (Auto) Urine Bacteria (Auto) Imaging - Results Chest X-ray: Image Reviewed (increased PVC) EKG: Image Reviewed Assessment/Plan Acute on chronic Hypercapneic Respiratory Failure Acute on chronic CHF Chronic HTN DM Do not suspect PNA 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 Acute on chronic renal insuffiency Chronic Venous stasis R/O Cellulitis Patient was placed back on NIPPV support Check ABG in 1 hour Low threshold for intubation if mental status does not improve Aspiration precautions IV lasix BD TX ABX coverage for possible cellulitis Can monitor off systemic steroids for now VTE prophylaxis Requires ICU monitoring Dr Chavez Critical care time spent in reviewing chart, evaluating patient and formulating plan - 36 minutes.
[2018-12-01 11:13] LABS: ARTERIAL BLD GAS O2 SATURATION 92.7 % (95-98); ARTERIAL BLOOD GAS PO2 71.8 mmHg (80-105); ARTERIAL BLOOD GAS pH 7.33 (7.35-7.45)
[2018-12-01 11:14] LABS: ALLENS TEST POSITIVE
[2018-12-01 11:17] LABS: ARTERIAL BLOOD GAS PCO2 71.8 mmHg (35-45)
[2018-12-01] MEDS ORDERED: PIPERACILLIN/TAZOB 4.5 GM 4.5 GM/100 ML BAG IVPB ONE (11:22)
--- NOTE | 2018-12-01 14:08 | CONSULT ---
Consultation: REQUESTING PROVIDER: CONSULT REQUEST: We have been asked to medically evaluate this patient for ICU. HISTORY OF PRESENT ILLNESS: Pt is a 78 y/o M with PMH Chronic Venous Stasis B/L LE, PVD, HTN, HLD, NIDDM, Former Smoker who presented to ED with SOB. At the time of my interview, pt was disoriented and not able to give history. Hx taken from ED staff and records. Pt had evidently been noncompliant with lasix and was unable to lay flat. He also missed his wound care appointment. Initial ABG in ED revealed hypercapnia. REVIEW OF SYSTEMS: CONSTITUTIONAL: Absent: fever, chills, diaphoresis, generalized weakness, malaise, loss of appetite, weight change HEENT: Absent: rhinorrhea, nasal congestion, throat pain, throat swelling, difficulty swallowing, mouth swelling, ear pain, eye pain, visual changes CARDIOVASCULAR: orthopnea Absent: chest pain, syncope, palpitations, irregular heart rate, lightheadedness , peripheral edema RESPIRATORY: shortness of breath Absent: cough,, dyspnea with exertion, orthopnea, wheezing, stridor, hemoptysis GASTROINTESTINAL: Absent: abdominal pain, abdominal distension, nausea, vomiting, diarrhea, constipation, melena, hematochezia GENITOURINARY: Absent: dysuria, frequency, urgency, hesitancy, hematuria, flank pain, genital pain MUSCULOSKELETAL: Absent: myalgia, arthralgia, joint swelling, back pain, neck pain SKIN: Absent: rash, itching, pallor HEMATOLOGIC/IMMUNOLOGIC: Absent: easy bleeding, easy bruising, lymphadenopathy, frequent infections ENDOCRINE: Absent: unexplained weight gain, unexplained weight loss, heat intolerance, cold intolerance NEUROLOGIC: Absent: headache, focal weakness or paresthesias, dizziness, unsteady gait, seizure, mental status changes, bladder or bowel incontinence PSYCHIATRIC: Absent: anxiety, depression, suicidal or homicidal ideation, hallucinations. PHYSICAL EXAMINATION Vital Signs - 24 hr 11/30/18 11/30/18 11/30/18 18:50 19:05 19:06 Temperature 98.5 F Pulse Rate 88 Pulse Rate [ Apical] Pulse Rate [ Left Apical] Respiratory 18 Rate Blood Pressure 154/80 Blood Pressure [Left Arm] O2 Sat by Pulse 80 L 62 L 93 L Oximetry (%) 11/30/18 11/30/18 11/30/18 19:07 20:18 20:32 Temperature Pulse Rate Pulse Rate [ Apical] Pulse Rate [ 88 87 42 L Left Apical] Respiratory 20 Rate Blood Pressure Blood Pressure 153/73 [Left Arm] O2 Sat by Pulse 99 100 99 Oximetry (%) 11/30/18 11/30/18 11/30/18 21:06 21:30 21:49 Temperature 98.1 F Pulse Rate 82 Pulse Rate [ Apical] Pulse Rate [ 89 87 Left Apical] Respiratory 20 20 18 Rate Blood Pressure 160/90 Blood Pressure 149/62 133/67 [Left Arm] O2 Sat by Pulse 98 100 Oximetry (%) 11/30/18 11/30/18 11/30/18 21:50 22:50 23:02 Temperature Pulse Rate 85 Pulse Rate [ Apical] Pulse Rate [ 92 H Left Apical] Respiratory 20 Rate Blood Pressure Blood Pressure 128/55 L [Left Arm] O2 Sat by Pulse 100 100 100 Oximetry (%) 12/01/18 12/01/18 12/01/18 00:30 01:49 06:17 Temperature 97.9 F 98.0 F Pulse Rate 83 Pulse Rate [ Apical] Pulse Rate [ 90 Left Apical] Respiratory 16 16 Rate Blood Pressure 107/67 Blood Pressure 127/63 [Left Arm] O2 Sat by Pulse 93 L 98 Oximetry (%) 12/01/18 12/01/18 12/01/18 07:44 08:49 11:00 Temperature Pulse Rate Pulse Rate [ 83 85 Apical] Pulse Rate [ Left Apical] Respiratory 20 20 Rate Blood Pressure Blood Pressure 112/52 L 116/55 L [Left Arm] O2 Sat by Pulse 98 93 L 98 Oximetry (%) 12/01/18 12/01/18 12/01/18 12:04 12:30 13:01 Temperature 98.1 F Pulse Rate 83 Pulse Rate [ 73 Apical] Pulse Rate [ Left Apical] Respiratory 22 H 20 Rate Blood Pressure 147/68 Blood Pressure 114/58 L [Left Arm] O2 Sat by Pulse 98 96 Oximetry (%) 12/01/18 13:18 Temperature Pulse Rate Pulse Rate [ Apical] Pulse Rate [ Left Apical] Respiratory 20 Rate Blood Pressure Blood Pressure [Left Arm] O2 Sat by Pulse 97 Oximetry (%) Gen: comfortable, AAOx1. Follows commands. On bilevel HEENT: NCAT, EOMI, PERRL Neck: supple, jvd Cardio: extrasystoles, s1s2, no mrg appreciated Pulm: bibasilar crackles Abd: obese, soft, nontender Ext: 2+ edema, 2+ distal pulses, warm Laboratory Results - last 24 hr 11/30/18 11/30/18 11/30/18 20:00 20:00 20:00 WBC 10.9 H RBC 4.36 Hgb 12.5 Hct 40.1 D MCV 92.0 MCH 28.7 MCHC 31.2 L RDW 16.0 H Plt Count 262 MPV 8.7 D Absolute Neuts (auto) 9.6 H Neutrophils % 88.2 H Neutrophils % (Manual) 78.0 Band Neutrophils % 3.0 Lymphocytes % 4.0 L D Lymphocytes % (Manual) 8.0 Monocytes % 5.5 Monocytes % (Manual) 10 Eosinophils % 1.1 Eosinophils % (Manual) 1.0 Basophils % 1.2 D Nucleated RBC % 0 Platelet Estimate Adequate Anticoagulation Therapy Puncture Site ABG pH ABG pCO2 at Pt Temp ABG pO2 at Pt Temp ABG HCO3 ABG O2 Sat (Measured) ABG O2 Content ABG Base Excess Julius Test O2 Delivery Device Oxygen Flow Rate Vent Mode Vent Rate Mechanical Rate Pressure Support Vent Sodium 141 Potassium 5.3 H Chloride 101 Carbon Dioxide 38 H Anion Gap 2 L BUN 34.4 H Creatinine 1.7 H Est GFR (CKD-EPI)AfAm 44.10 Est GFR (CKD-EPI)NonAf 38.05 POC Glucometer Random Glucose 158 H Calcium 8.8 Phosphorus Magnesium Total Bilirubin 0.6 AST 32 ALT 27 Alkaline Phosphatase 89 Creatine Kinase 90 Troponin I < 0.02 B-Natriuretic Peptide 899.5 H Total Protein 8.2 Albumin 3.5 Urine Color Urine Appearance Urine pH Ur Specific [place] Urine Protein Urine Glucose (UA) Urine Ketones Urine Blood Urine Nitrite Urine Bilirubin Urine Urobilinogen Ur Leukocyte Esterase Urine WBC (Auto) Urine RBC (Auto) Urine Casts (Auto) U Epithel Cells (Auto) Urine Bacteria (Auto) 11/30/18 11/30/18 12/01/18 20:14 22:29 06:09 WBC RBC Hgb Hct MCV MCH MCHC RDW Plt Count MPV Absolute Neuts (auto) Neutrophils % Neutrophils % (Manual) Band Neutrophils % Lymphocytes % Lymphocytes % (Manual) Monocytes % Monocytes % (Manual) Eosinophils % Eosinophils % (Manual) Basophils % Nucleated RBC % Platelet Estimate Anticoagulation Therapy No Result Required. Puncture Site Left radial ABG pH 7.22 L ABG pCO2 at Pt Temp 92.2 H* ABG pO2 at Pt Temp 119 H ABG HCO3 36.5 H ABG O2 Sat (Measured) 97.3 ABG O2 Content 18.4 ABG Base Excess 5.6 H Julius Test Positive O2 Delivery Device No Result Required. Oxygen Flow Rate Yes Vent Mode No Result Required. Vent Rate No Result Required. Mechanical Rate No Result Required. Pressure Support Vent No Result Required. Sodium Potassium Chloride Carbon Dioxide Anion Gap BUN Creatinine Est GFR (CKD-EPI)AfAm Est GFR (CKD-EPI)NonAf POC Glucometer 142 Random Glucose Calcium Phosphorus Magnesium Total Bilirubin AST ALT Alkaline Phosphatase Creatine Kinase Troponin I B-Natriuretic Peptide Total Protein Albumin Urine Color [place] Urine Appearance Clear Urine pH 5.0 Ur Specific [place] 1.010 Urine Protein Trace Urine Glucose (UA) Negative Urine Ketones Negative Urine Blood 3+ H Urine Nitrite Negative Urine Bilirubin Negative Urine Urobilinogen 0.2 Ur Leukocyte Esterase Trace Urine WBC (Auto) 5 Urine RBC (Auto) 1309 Urine Casts (Auto) 3 U Epithel Cells (Auto) 0.8 Urine Bacteria (Auto) 5.4 12/01/18 12/01/18 12/01/18 06:30 06:30 11:00 WBC 10.5 H RBC 3.95 L Hgb 11.3 L Hct 35.9 MCV 90.8 MCH 28.7 MCHC 31.6 L RDW 16.0 H Plt Count 207 D MPV 8.5 Absolute Neuts (auto) 8.8 H Neutrophils % 84.4 H Neutrophils % (Manual) Band Neutrophils % Lymphocytes % 5.7 L D Lymphocytes % (Manual) Monocytes % 8.6 Monocytes % (Manual) Eosinophils % 0.6 Eosinophils % (Manual) Basophils % 0.7 Nucleated RBC % 0 Platelet Estimate Anticoagulation Therapy No Result Required. Puncture Site Right radial ABG pH 7.33 L ABG pCO2 at Pt Temp 71.8 H* ABG pO2 at Pt Temp 71.8 L ABG HCO3 36.9 H ABG O2 Sat (Measured) 92.7 L ABG O2 Content 15.2 ABG Base Excess 9.0 H Julius Test Positive O2 Delivery Device No Result Required. Oxygen Flow Rate 35 Vent Mode No Result Required. Vent Rate 18 Mechanical Rate No Result Required. Pressure Support Vent 16/8 Sodium 144 Potassium 4.5 Chloride 101 Carbon Dioxide 37 H Anion Gap 6 L BUN 35.4 H Creatinine 1.5 H Est GFR (CKD-EPI)AfAm 51.31 Est GFR (CKD-EPI)NonAf 44.27 POC Glucometer Random Glucose 141 H Calcium 8.3 L Phosphorus 4.2 Magnesium 2.3 Total Bilirubin AST ALT Alkaline Phosphatase Creatine Kinase Troponin I B-Natriuretic Peptide Total Protein Albumin Urine Color Urine Appearance Urine pH Ur Specific [place] Urine Protein Urine Glucose (UA) Urine Ketones Urine Blood Urine Nitrite Urine Bilirubin Urine Urobilinogen Ur Leukocyte Esterase Urine WBC (Auto) Urine RBC (Auto) Urine Casts (Auto) U Epithel Cells (Auto) Urine Bacteria (Auto) Active Medications Generic Name Dose Route Start Last Admin Trade Name Freq PRN Reason Stop Dose Admin Aspirin 81 mg 12/01/18 10:00 Ecotrin - PO DAILY SHRADDHA Furosemide 40 mg 12/01/18 14:00 Lasix Injection - IVPUSH BID@0600,1400 SHRADDHA Piperacillin Sod/Tazobactam 100 mls @ 200 mls/hr 12/01/18 10:45 Sod 4.5 gm/ Dextrose IVPB Q8H-IV SHRADDHA Protocol Piperacillin Sod/Tazobactam 100 mls @ 200 mls/hr 12/01/18 11:00 12/01/18 11: 46 Sod 4.5 gm/ Dextrose IVPB 12/02/18 10:59 200 mls/hr Q8H-IV SHRADDHA Administration Protocol Multivitamins/Minerals/Vitamin C 1 tab 12/01/18 10:00 Tab-A-Vit - PO DAILY SHRADDHA Ramipril 10 mg 12/01/18 10:00 Altace - PO DAILY SHRADDHA Sitagliptin Phosphate 50 mg 12/01/18 07:00 Januvia - PO BIDAC SHRADDHA ASSESSMENT/PLAN: Pt is a 78 y/o M with PMH Chronic Venous Stasis B/L LE, PVD, HTN, HLD, NIDDM, Former Smoker who presents to ED with complaint of SOB and became altered. Found to have hypercapnic resp failure with acute on chronic HF. #Hypercapnic resp failure with AMS -improving on bilevel -f/u repeat ABG -wean FiO2 -Maintain O2 > 88% #Acute on CHF -lasix -daily weight -I/O -f/u echo -c/w ACEI -f/u cardio recs #RLE venous stasis vs cellulitis -hx MRSA, Proteus, Psuedomonas of RLE -treated with Vanc, Cefazolin -of note, no fever, minimal leukocytosis, which is similar to prior presentation -On Zosyn -ID on board #HTN -c/w ramipril #NIDDM -BGM ACHS -hold oral agents -ISS ACHS #HLD -resume PO meds once off bilevel Dispo: We will continue to follow the patient. Thank you for this consultative opportunity. Visit type - Emergency Visit Emergency Visit: Yes ED Registration Date: 11/30/18 Care time: The patient presented to the Emergency Department on the above date and was hospitalized for further evaluation of their emergent condition. - New Patient This patient is new to me today: Yes Date on this admission: 12/01/18 - Critical Care Critical Care patient: Yes Total Critical Care Time (in minutes): 35 Critical Care Statement: The care of this patient involved high complexity decision making to prevent further life threatening deterioration of the patient 's condition and/or to evaluate & treat vital organ system(s) failure or risk of failure.
[2018-12-01] MEDS: FUROSEMIDE 40 MG/4 ML INJECTABLE VIAL IVPUSH SCH (15:04)
[2018-12-01] MEDS: RAMIPRIL 5 MG CAPSULE (FP) PO SCH (15:10)
[2018-12-01] MEDS: ASPIRIN COATED 81 MG TABLET.EC PO SCH (15:10)
[2018-12-01] MEDS: MULTIVITAMINS (DAILY MVI) TABLET (FP) PO SCH (15:10)
--- NOTE | 2018-12-01 15:24 | PN ---
Progress Note (short form) - Note Progress Note: ID CONSULT DICTATED ACUTE ON CHRONIC RESP FAILURE CHRONIC VENOUS STASIS DEMATITIS ?CELLULITIS R LE AZOTEMIA HX MRSA OBTAIN BC EMPIRIC VANCOMYCIN, ADJUSTED FOR AZOTEMIA
[2018-12-01] MEDS ORDERED: VANCOMYCIN 1,000 MG in DEXTROSE 5%-WATER - 250 ML IVPB SCH (16:00)
[2018-12-01] MEDS ORDERED: PT OWN MED DRAWER 7, Y5N ONE (17:00)
[2018-12-01] MEDS: sitaGLIPtin PHOSPHATE 50 MG TABLET PO SCH ×2 (17:03→17:43)
[2018-12-01 17:11] LABS: ARTERIAL BLD GAS O2 SATURATION 94.7 % (95-98); ARTERIAL BLOOD GAS PO2 78.2 mmHg (80-105); ARTERIAL BLOOD GAS pH 7.35 (7.35-7.45)
[2018-12-01 17:22] LABS: ARTERIAL BLOOD GAS PCO2 70.1 mmHg (35-45)
[2018-12-01] MEDS: INSULIN SLIDING SCALE (NOVOLOG) 1 VIAL SQ SCH ×2 (17:43→23:19)
[2018-12-01] MEDS ORDERED: LORazepam 2 MG/ML SDV VIAL IVPUSH ONE (23:11)
--- NOTE | 2018-12-01 23:14 | PN ---
Progress Note (short form) - Note Progress Note: UPDATE 1: Pt ABG resulting at 7.29/80pCO2 which would explain slight decline in pt's mentation. Likely pt has obesity hypoventilation syndrome and decreases chest excursion when sleeping supine. --Increase IPAP to 18 while asleep --Recommend pt should have outpatient PFT's and sleep study due to noted hypopnea followed by hyperpnea while sleeping indicating ZENIA Pt extremely agitated pulling off NIPPV mask, trying to strike at nursing staff and yelling obscenities. Pt believes he is home in 1942. Attempted to reorient to hospital x2 with pt returning to agitated state. PPrior to this episode pt was with his calm and still slightly disoriented. Pt's left and pt went to sleep and awoke to this state Brief PE: GEN: Agitated, oriented to self only, awake Lungs: Good aeration, scattered rhonchi noted, NIPPV settings: RR 18/IPAP 16/ EPAP 8/35% Cardiac: RRR, no murmurs, multiple PVCs heard EXT: venous stasis changes with lichenified areas --Pt at risk of harming himself, medical staff, and is pulling at equipment helped to augment his respiratory status so restraints applied. Will continue to attempt orientation and re-evaluate need for restraints throughout the night. --Will need to obtain repeat ABG due to suspect of hypercarbic metabolic encephalopathy worsening while pt sleeps
[2018-12-01] MEDS ORDERED: LORazepam 2 MG/ML SDV VIAL ONE (23:19)
[2018-12-02 00:33] LABS: ARTERIAL BLD GAS O2 SATURATION 98.2 % (95-98); ARTERIAL BLOOD GAS BASE EXCESS 10.3 meq/l (-2-2); ARTERIAL BLOOD GAS PO2 116 mmHg (80-105); ARTERIAL BLOOD GAS pH 7.29 (7.35-7.45)
[2018-12-02 00:37] LABS: ARTERIAL BLOOD GAS PCO2 83.6 mmHg (35-45)
[2018-12-02 00:38] LABS: ALLENS TEST POSITIVE
[2018-12-02 05:54] LABS: BASO % 0.5 % (0-2.0); EOS % 2.5 % (0-4.5); HEMATOCRIT 37.8 % (35.4-49); HEMOGLOBIN 11.8 GM/dL (11.7-16.9); LYMPH % 4.7 % (8-40); MCH 28.3 pg (25.7-33.7); MCHC 31.1 g/dl (32.0-35.9); MEAN CELL VOLUME 90.9 fl (80-96); MEAN PLT VOLUME 8.6 fl (7.5-11.1); MONO % 8.1 % (3.8-10.2); NEUT % 84.2 % (42.8-82.8); PLATELET COUNT 247 K/MM3 (134-434); RBC 4.16 M/mm3 (4.00-5.60); RDW 16.3 % (11.9-15.9); WHITE BLOOD COUNT 11.6 K/mm3 (4.0-10.0)
[2018-12-02] MEDS: FUROSEMIDE 40 MG/4 ML INJECTABLE VIAL IVPUSH SCH ×2 (06:14→13:25)
[2018-12-02 06:17] LABS: BLOOD UREA NITROGEN 32.3 mg/dL (7-18); CALCIUM 8.2 mg/dL (8.5-10.1); CREATININE 1.6 mg/dL (0.55-1.3); MAGNESIUM 2.3 mg/dL (1.8-2.4); POTASSIUM 4.4 mmol/L (3.5-5.1)
[2018-12-02] MEDS: sitaGLIPtin PHOSPHATE 50 MG TABLET PO SCH (06:20)
[2018-12-02] MEDS: INSULIN SLIDING SCALE (NOVOLOG) 1 VIAL SQ SCH ×4 (06:20→22:27)
--- NOTE | 2018-12-02 07:59 | PN ---
Physical Exam: SUBJECTIVE: Patient seen and examined at bedside this morning. Overnight, patient noted to be confused, agitated, physically combative. ABG revealed hypercarbia, and BiLevel settings were modified. This morning patient is sleepy , arousable to voice, moving all four extremities. OBJECTIVE: Vital Signs Period Temp Pulse Resp BP Sys/Frank Pulse Ox Last 24 Hr 97.9 F-98.1 F 71-96 15-25 108-147/48-72 93-100 GENERAL: The patient is sleepy. No acute distress. On BiLevel ventilation. HEAD: Normocephalic, atraumatic. EYES: PERRL, extraocular movements intact, sclera anicteric, conjunctiva clear. ENT: Oropharynx clear without exudates, dry mucous membranes. NECK: Supple without lymphadenopathy. LUNGS: Mechanical breath sounds auscultated. Poor air entry bilaterally. No accessory muscle use. HEART: Regular rate and rhythm, S1, S2 without murmur, rub or gallop. ABDOMEN: Obese abdomen. Soft, nontender. Normoactive bowel sounds. No guarding, no rebound tenderness. EXTREMITIES: 2+ radial, dorsalis pedis pulses bilaterally. Warm, well-perfused. 2+ lower extremity edema bilaterally. NEUROLOGICAL: Patient freely moves all four extremities equally. Nonfocal exam. SKIN: Warm, dry. Chonic venous changes noted bilateral lower extremities, with dry flaking skin. Laboratory Results - last 24 hr 12/01/18 12/01/18 12/01/18 11:00 16:55 17:13 WBC RBC Hgb Hct MCV MCH MCHC RDW Plt Count MPV Absolute Neuts (auto) Neutrophils % Lymphocytes % Monocytes % Eosinophils % Basophils % Nucleated RBC % Anticoagulation Therapy No Result Required. Puncture Site Right radial Right radial ABG pH 7.33 L 7.35 ABG pCO2 at Pt Temp 71.8 H* 70.1 H* ABG pO2 at Pt Temp 71.8 L 78.2 L ABG HCO3 36.9 H 37.9 H ABG O2 Sat (Measured) 92.7 L 94.7 L ABG O2 Content 15.2 16.7 ABG Base Excess 9.0 H 10.0 H Julius Test Positive No Result Required. O2 Delivery Device No Result Required. Oxygen Flow Rate 35 No Result Required. Vent Mode No Result Required. Vent Rate 18 18 Mechanical Rate No Result Required. Pressure Support Vent 16/8 Sodium Potassium Chloride Carbon Dioxide Anion Gap BUN Creatinine Est GFR (CKD-EPI)AfAm Est GFR (CKD-EPI)NonAf POC Glucometer 142 Random Glucose Calcium Magnesium 12/01/18 12/02/18 12/02/18 22:55 00:25 05:20 WBC RBC Hgb Hct MCV MCH MCHC RDW Plt Count MPV Absolute Neuts (auto) Neutrophils % Lymphocytes % Monocytes % Eosinophils % Basophils % Nucleated RBC % Anticoagulation Therapy No Result Required. Puncture Site Right radial ABG pH 7.29 L ABG pCO2 at Pt Temp 83.6 H* ABG pO2 at Pt Temp 116 H ABG HCO3 39.3 H ABG O2 Sat (Measured) 98.2 H ABG O2 Content 15.3 ABG Base Excess 10.3 H Julius Test Positive O2 Delivery Device Bipap Oxygen Flow Rate 40% Vent Mode S/t Vent Rate 8 Mechanical Rate No Result Required. Pressure Support Vent 16 Sodium 140 Potassium 4.4 Chloride 98 Carbon Dioxide 39 H Anion Gap 3 L BUN 32.3 H Creatinine 1.6 H Est GFR (CKD-EPI)AfAm 47.46 Est GFR (CKD-EPI)NonAf 40.95 POC Glucometer 122 Random Glucose 111 H Calcium 8.2 L Magnesium 2.3 12/02/18 12/02/18 05:20 05:20 WBC 11.6 H RBC 4.16 Hgb 11.8 Hct 37.8 MCV 90.9 MCH 28.3 MCHC 31.1 L RDW 16.3 H Plt Count 247 MPV 8.6 Absolute Neuts (auto) 9.8 H Neutrophils % 84.2 H Lymphocytes % 4.7 L Monocytes % 8.1 Eosinophils % 2.5 D Basophils % 0.5 Nucleated RBC % 0 Anticoagulation Therapy Puncture Site ABG pH ABG pCO2 at Pt Temp ABG pO2 at Pt Temp ABG HCO3 ABG O2 Sat (Measured) ABG O2 Content ABG Base Excess Julius Test O2 Delivery Device Oxygen Flow Rate Vent Mode Vent Rate Mechanical Rate Pressure Support Vent Sodium Potassium Chloride Carbon Dioxide Anion Gap BUN Creatinine Est GFR (CKD-EPI)AfAm Est GFR (CKD-EPI)NonAf POC Glucometer 110 Random Glucose Calcium Magnesium Active Medications Generic Name Dose Route Start Last Admin Trade Name Freq PRN Reason Stop Dose Admin Aspirin 81 mg 12/01/18 10:00 12/01/18 15:10 Ecotrin - PO 81 mg DAILY SHRADDHA Administration Furosemide 40 mg 12/01/18 14:00 12/02/18 06:14 Lasix Injection - IVPUSH 40 mg BID@0600,1400 SHRADDHA Administration Vancomycin HCl 1,000 mg/ 250 mls @ 200 mls/hr 12/01/18 16:00 12/01/18 17:42 Dextrose IVPB 200 mls/hr Q24H SHRADDHA Administration Protocol Insulin Aspart 1 vial 12/01/18 16:30 12/02/18 06:20 Novolog Vial Sliding Scale - SQ Not Given [facility] Protocol Multivitamins/Minerals/Vitamin C 1 tab 12/01/18 10:00 12/01/18 15:10 Tab-A-Vit - PO 1 tab DAILY SHRADDHA Administration Ramipril 10 mg 12/01/18 10:00 12/01/18 15:10 Altace - PO 10 mg DAILY SHRADDHA Administration Sitagliptin Phosphate 50 mg 12/01/18 07:00 12/02/18 06:20 Januvia - PO Not Given BIDAC SHRADDHA ASSESSMENT/PLAN: Patient is 78 year old male with history of hypertension, hyperlipidemia, diabetes mellitus, chronic venous stasis admitted to ICU for acute hypercapnic respiratory failure secondary to acute on chronic heart failure. Neurologic -Patient currently sedated (received 2mg Ativan overnight). -Repeat ABG to evaluate for hypercarbia- likely contributing to agitation. -Monitor for signs of mental status change. Pulmonary Acute hypercapnic respiratory failure -BiLevel Ventilation IPAP 18- EPAP 8- Rate 18- FiO2 40% -Chest radiograph shows bilateral congestive changes, and left sided atelectasis. -Methylprednisolone 40mg IV Q8 hours -Follow repeat ABG -Maintain oxygen saturation greater than 90% Cardiac Acute on chronic heart failure Hypertension Hyperlipidemia -Cardaic ECHO -Furosemide 40mg IV BID -Ramipril 10mg PO daily -Aspirin 81mg PO daily Gastrointestinal -Trial of sodium, diabetic controlled diet Endocrine Diabetes mellitus -Insulin sliding scale ACHS -Insulin levemir 10 units subq HS -Fingerstick blood glucose monitoring [facility] Infectious disease Cellulitis bilateral lower extremities -Vancomycin 1000mg IV Q24 hours -ID recommendations (Dr. Lombardi) appreciated. FEN - No IV fluids indicated - Follow CMP, replete as necessary - Sodium, diabetic controlled diet Prophylaxis -Lovenox 40mg subq daily Disposition -Patient is medically stable for transfer to Telemetry floor. Visit type - Emergency Visit Emergency Visit: Yes ED Registration Date: 11/30/18 Care time: The patient presented to the Emergency Department on the above date and was hospitalized for further evaluation of their emergent condition. - New Patient This patient is new to me today: Yes Date on this admission: 12/02/18 - Critical Care Critical Care patient: Yes Total Critical Care Time (in minutes): 35 Critical Care Statement: The care of this patient involved high complexity decision making to prevent further life threatening deterioration of the patient 's condition and/or to evaluate & treat vital organ system(s) failure or risk of failure. - Discharge Referral Referred to [facility] No
[2018-12-02] MEDS ORDERED: VANCOMYCIN 1 GRAM (PRE-DOCKED) 1,000 MG/250 ML BAG IVPB SCH (08:06)
[2018-12-02 08:17] LABS: ARTERIAL BLD GAS O2 SATURATION 96.3 % (95-98); ARTERIAL BLOOD GAS BASE EXCESS 10.8 meq/l (-2-2); ARTERIAL BLOOD GAS PO2 87.2 mmHg (80-105); ARTERIAL BLOOD GAS pH 7.32 (7.35-7.45)
[2018-12-02 08:37] LABS: ALLENS TEST POSITIVE
[2018-12-02 08:49] LABS: ARTERIAL BLOOD GAS PCO2 78.5 mmHg (35-45)
[2018-12-02] MEDS: ASPIRIN COATED 81 MG TABLET.EC PO SCH (09:46)
[2018-12-02] MEDS: RAMIPRIL 5 MG CAPSULE (FP) PO SCH (09:46)
[2018-12-02] MEDS: MULTIVITAMINS (DAILY MVI) TABLET (FP) PO SCH (09:46)
--- NOTE | 2018-12-02 10:20 | PN ---
Progress Note, Physician Chief Complaint: sob, swelling History of Present Illness: is confused, unsure of day of week and of what happened yesterday in hosp. denies sob at present. leg swelling persists. denies cp, palpit ex cigs - Current Medication List Current Medications: Active Medications Aspirin (Ecotrin -) 81 mg PO DAILY [facility] Last Admin: 12/02/18 09:46 Dose: 81 mg Furosemide (Lasix Injection -) 40 mg IVPUSH BID@0600,1400 [facility] Last Admin: 12/02/18 06:14 Dose: 40 mg Vancomycin HCl (Vancomycin (Pre-Docked)) 1,000 mg in 250 mls @ 166.667 mls/hr IVPB Q24H [facility]; Protocol Last Admin: 12/02/18 09:40 Dose: 166.667 mls/hr Insulin Aspart (Novolog Vial Sliding Scale -) 1 vial SQ ACHS [facility]; Protocol Last Admin: 12/02/18 06:20 Dose: Not Given Multivitamins/Minerals/Vitamin C (Tab-A-Vit -) 1 tab PO DAILY [facility] Last Admin: 12/02/18 09:46 Dose: 1 tab Ramipril (Altace -) 10 mg PO DAILY [facility] Last Admin: 12/02/18 09:46 Dose: 10 mg Sitagliptin Phosphate (Januvia -) 50 mg PO BIDAC [facility] Last Admin: 12/02/18 06:20 Dose: Not Given - Objective Vital Signs: Vital Signs Temperature 97.9 F 12/02/18 06:00 Pulse Rate 90 12/02/18 08:00 Respiratory Rate 20 12/02/18 09:00 Blood Pressure 131/59 L 12/02/18 08:00 O2 Sat by Pulse Oximetry (%) 97 12/02/18 09:00 Constitutional: Yes: No Distress, Calm, Obese Eyes: No: Sclera Icterus HENT: No: Nasal Congestion Cardiovascular: Yes: Regular Rate and Rhythm, JVD (possible (TDS habitus)), S1, S2, Other (PMI non diplaced). No: Gallop, Murmur Respiratory: Yes: CTA Bilaterally. No: Accessory Muscle Use, Rales Gastrointestinal: Yes: Normal Bowel Sounds, Soft. No: Tenderness Musculoskeletal: Yes: Other (No kyphosis) Extremities: No: Cold, Cyanosis Edema: Yes (1+ LE) Integumentary: No: Jaundice Neurological: Yes: Alert. No: Seizure Psychiatric: No: Agitated Labs: CBC, BMP 12/02/18 05:20 12/02/18 05:20 Assessment/Plan tele: NSR, PVCs IMP: -Acute on chronic CHF (type TBD) -Acute on chronic hypercapneic resp failure, suspected underlying ZENIA, ? obesity -hypoventilation--requiring NIPPV here with drowsiness on DOA -Chronic HTN, suspected hypertensive heart disease -DM -Chronic venous stasis, ? cellulitis -Acute on chronic renal insuffiency REC: -renal fxn remains stable remains above baseline (1.2 mg/dl), but stable here. continue IV lasix (40 BID), daily weights -echo pending -BP controlled, cont [id number] -O2, NIPPV per crit care team -DVT prophylaxis. -treatment of venous stasis and possible superimposed cellulitis as per PMD, critical care -will plan ischemia eval when euvolemic (may be done as outpt if no sx/s of angina/ischemia here).
--- NOTE | 2018-12-02 10:30 | PN ---
Progress Note (short form) - Note Progress Note: Pt seen/ examined in icu chart reviewed awake/ alert recognizes me feels hungry -- wants to eat Vital Signs Temp 97.9 F 12/02/18 06:00 Pulse 94 H 12/02/18 10:00 Resp 24 H 12/02/18 10:00 BP 124/53 L 12/02/18 10:00 Pulse Ox 97 12/02/18 09:00 Intake & Output 12/01/18 12/01/18 12/02/18 11:59 23:59 11:59 Intake Total 120 270 20 Output Total 1000 Balance -880 270 20 Weight 253 lb 248 lb 4.8 oz Intake: IV 20 20 Saline Lock 20 20 IVPB 250 Oral 120 0 0 Output: Urine 1000 Void 1000 Other: Voiding Method Incontinent Urinal # Unmeasured Voids Void 4 3 Bowel Movement No No Height 5 ft 9 in Body Mass Index (BMI) 37.3 Weight Measurement Method Built in Bedscale Built in Bedscale Active Medications Aspirin (Ecotrin -) 81 mg PO DAILY [facility] Last Admin: 12/02/18 09:46 Dose: 81 mg Furosemide (Lasix Injection -) 40 mg IVPUSH BID@0600,1400 [facility] Last Admin: 12/02/18 06:14 Dose: 40 mg Vancomycin HCl (Vancomycin (Pre-Docked)) 1,000 mg in 250 mls @ 166.667 mls/hr IVPB Q24H [facility]; Protocol Last Admin: 12/02/18 09:40 Dose: 166.667 mls/hr Insulin Aspart (Novolog Vial Sliding Scale -) 1 vial SQ ACHS [facility]; Protocol Last Admin: 12/02/18 06:20 Dose: Not Given Multivitamins/Minerals/Vitamin C (Tab-A-Vit -) 1 tab PO DAILY [facility] Last Admin: 12/02/18 09:46 Dose: 1 tab Ramipril (Altace -) 10 mg PO DAILY [facility] Last Admin: 12/02/18 09:46 Dose: 10 mg Sitagliptin Phosphate (Januvia -) 50 mg PO BIDAC [facility] Last Admin: 12/02/18 06:20 Dose: Not Given CBC, BMP 12/02/18 05:20 12/02/18 05:20 Abnormal Lab Results 12/01/18 12/01/18 12/02/18 11:00 16:55 00:25 WBC MCHC RDW Absolute Neuts (auto) Neutrophils % Lymphocytes % ABG pH 7.33 L 7.29 L ABG pCO2 at Pt Temp 71.8 H* 70.1 H* 83.6 H* ABG pO2 at Pt Temp 71.8 L 78.2 L 116 H ABG HCO3 36.9 H 37.9 H 39.3 H ABG O2 Sat (Measured) 92.7 L 94.7 L 98.2 H ABG Base Excess 9.0 H 10.0 H 10.3 H Carbon Dioxide Anion Gap BUN Creatinine Random Glucose Calcium 12/02/18 12/02/18 12/02/18 05:20 05:20 08:05 WBC 11.6 H MCHC 31.1 L RDW 16.3 H Absolute Neuts (auto) 9.8 H Neutrophils % 84.2 H Lymphocytes % 4.7 L ABG pH 7.32 L ABG pCO2 at Pt Temp 78.5 H* ABG pO2 at Pt Temp ABG HCO3 39.3 H ABG O2 Sat (Measured) ABG Base Excess 10.8 H Carbon Dioxide 39 H Anion Gap 3 L BUN 32.3 H Creatinine 1.6 H Random Glucose 111 H Calcium 8.2 L ABG Results ABG pH 7.32 (7.35-7.45) L 12/02/18 08:05 ABG pCO2 at Pt Temp 78.5 mmHg (35-45) H* 12/02/18 08:05 ABG pO2 at Pt Temp 87.2 mmHg (80-105) 12/02/18 08:05 ABG HCO3 39.3 mmol/L (22-27) H 12/02/18 08:05 ABG O2 Sat (Measured) 96.3 % (95-98) 12/02/18 08:05 ABG O2 Content 15.2 % vol (15-22) 12/02/18 08:05 ABG Base Excess 10.8 meq/l (-2-2) H 12/02/18 08:05 cxr -- noted today - cxr - pending Physical Exam Awake -On Bipap. S1 S2 RRR Lungs decreased breath sounds B/L crackles+ abd- soft, obese, NT edema + rt leg erythema, edema >left chronic venous changes PLAN on BIPAP- Better iv antibiotics iv lasix Add short course of steroids Gi prophylaxis Monitor BGM Add basal Insulin Dvt prophylaxis Will follow cc time in examining / documenting / coordating care approx 40 min Discussed with Nursing staff also. Problem List - Problems (1) KELLI (acute kidney injury) Code(s): N17.9 - ACUTE KIDNEY FAILURE, UNSPECIFIED (2) CHF exacerbation Code(s): I50.9 - HEART FAILURE, UNSPECIFIED (3) Fluid overload Code(s): E87.70 - FLUID OVERLOAD, UNSPECIFIED Qualifiers: Hypervolemia type: unspecified Qualified Code(s): E87.70 - Fluid overload, unspecified (4) Cellulitis of right leg Code(s): L03.115 - CELLULITIS OF RIGHT LOWER LIMB (5) Hypertension Code(s): I10 - ESSENTIAL (PRIMARY) HYPERTENSION
[2018-12-02] MEDS ORDERED: methylPREDNISolone NA SUCC 40 MG/1 ML VIAL IVPUSH SCH (10:45)
[2018-12-02] MEDS ORDERED: PANTOPRAZOLE 40 MG TABLET (FP) PO SCH (10:45)
[2018-12-02] MEDS ORDERED: ENOXAPARIN NA (PORCINE) 40 MG/0.4 ML DISP.SYRIN SQ SCH (11:00)
[2018-12-02] MEDS ORDERED: ALBUTEROL SO4 2.5/IPRATROPIUM 0.5 INH SOL 3 ML VIAL.NEB. NEB PRN (11:39)
--- NOTE | 2018-12-02 11:58 | PN ---
Teaching Attending Note Name of Resident: Guicho Monroy ATTENDING PHYSICIAN STATEMENT I saw and evaluated the patient. I reviewed the resident's note and discussed the case with the resident. I agree with the resident's findings and plan as documented. SUBJECTIVE: Pt seen and examined in the ICU. Remains on BiPAP. Agitated, confused overnight. More alert, awake this AM. OBJECTIVE: Vital Signs Period Temp Pulse Resp BP Sys/Frank Pulse Ox Last 24 Hr 97.9 F-98.1 F 71-96 15-25 108-147/48-72 93-100 Intake & Output 11/29/18 11/30/18 12/01/18 12/02/18 23:59 23:59 23:59 23:59 Intake Total 500 390 20 Output Total 2000 1000 Balance -1500 -610 20 Weight 100 kg 114.759 kg 112.627 kg Gen: mildly tachypneic on BiPAP Heart: RRR Lung: decreased breath sounds at the bases Abd: soft, nontender Ext: chronic changes LE CBC, BMP 12/02/18 05:20 12/02/18 05:20 Active Medications Albuterol/Ipratropium (Duoneb -) 1 amp NEB Q4H PRN PRN Reason: SHORTNESS OF BREATH Aspirin (Ecotrin -) 81 mg PO DAILY [facility] Last Admin: 12/02/18 09:46 Dose: 81 mg Enoxaparin Sodium (Lovenox -) 40 mg SQ DAILY [facility] Furosemide (Lasix Injection -) 40 mg IVPUSH BID@0600,1400 [facility] Last Admin: 12/02/18 06:14 Dose: 40 mg Vancomycin HCl (Vancomycin (Pre-Docked)) 1,000 mg in 250 mls @ 166.667 mls/hr IVPB Q24H [facility]; Protocol Last Admin: 12/02/18 09:40 Dose: 166.667 mls/hr Insulin Aspart (Novolog Vial Sliding Scale -) 1 vial SQ ACHS [facility]; Protocol Last Admin: 12/02/18 06:20 Dose: Not Given Insulin Detemir (Levemir Vial) 10 units SQ HS [facility] Methylprednisolone Sodium Succinate (Solu-Medrol -) 40 mg IVPUSH Q8H-IV [facility] Multivitamins/Minerals/Vitamin C (Tab-A-Vit -) 1 tab PO DAILY [facility] Last Admin: 12/02/18 09:46 Dose: 1 tab Pantoprazole Sodium (Protonix -) 40 mg PO DAILY [facility] Ramipril (Altace -) 10 mg PO DAILY [facility] Last Admin: 12/02/18 09:46 Dose: 10 mg ASSESSMENT AND PLAN: Acute on Chronic Hypercapneic Respiratory Failure Acute on Chronic Congestive Heart Failure Morbid Obesity Likely ZENIA/OHS r/o Cellulitis Acute on Chronic Renal Failure HTN DM - continue lasix - monitor urine output, creatinine - echocardiogram - inhaled bronchodilators - O2 to keep Spo2 88-92% - on empiric antibiotics - will need outpt PFTs, PSG - DVT prophylaxis - can monitor on telemetry with pulse oximetry monitoring critical care time spent in reviewing chart, evaluating patient and formulating plan 35 min
--- NOTE | 2018-12-02 14:50 | ECHO ---
Name: SAMSON DUBOSE Exam:Adult Echocardiogram Study Date: 12/02/2018 01:32 PM Age: 78 yrs Reason For Study: CHF Height: 69 in Weight: 248 lb BSA: 2.3 m2 BP: 112/83 mmHg MMode/2D Measurements & Calculations IVSd: 1.3 cm Ao root diam: 2.6 cm LVIDd: 4.8 cm LA dimension: 3.2 cm LVIDs: 3.0 cm LVPWd: 1.2 cm EDV(Teich): 108.9 ml LVOT diam: 2.1 cm ESV(Teich): 36.3 ml Doppler Measurements & Calculations MV E max stephen: 89.3 cm/sec Ao V2 max: 261.5 cm/sec MV A max stephen: 106.6 cm/sec Ao max P.4 mmHg MV E/A: 0.84 Ao V2 mean: 180.1 cm/sec MV dec time: 0.25 sec Ao mean P.4 mmHg Ao V2 VTI: 49.6 cm JAMAL(I,D): 1.4 cm2 JAMAL(V,D): 1.4 cm2 LV V1 max P.8 mmHg SV(LVOT): 70.5 ml LV V1 mean P.2 mmHg LV V1 max: 110.1 cm/sec LV V1 mean: 66.9 cm/sec LV V1 VTI: 20.7 cm TR max stephen: 251.1 cm/sec Med Peak E' Stephen: 4.8 cm/sec TR max P.6 mmHg Med E/e': 18.5 Lat Peak E' Stephen: 8.9 cm/sec Lat E/e': 10.1 Procedure A complete two-dimensional transthoracic echocardiogram was performed (2D, M-mode, Doppler and color flow Doppler). Technically limited study. Left Ventricle The left ventricle is normal in size. There is mild concentric left ventricular hypertrophy. Left jose tricular systolic function is normal. Ejection Fraction = 60-65%. No regional wall motion abnormalities noted. Right Ventricle The right ventricle is normal size. The right ventricular systolic function is normal. RV systolic TD I is 17 cm/s. Atria The left atrial size is normal. Right atrial size is normal. Mitral Valve The mitral valve is normal in structure and function. There is no mitral regurgitation noted. Tricuspid Valve The tricuspid valve is normal in structure and function. No tricuspid regurgitation. Aortic Valve There is mild aortic sclerosis.;. No aortic regurgitation is present. Pulmonic Valve The pulmonic valve is not well visualized. Great Vessels The aortic root is normal size. Pericardium/Pleura There is no pericardial effusion. Interpretation Summary The left ventricle is normal in size. There is mild concentric left ventricular hypertrophy. Left ventricular systolic function is normal. No regional wall motion abnormalities noted. Ejection Fraction = 60-65%. The right ventricular systolic function is normal. The left atrial size is normal. Right atrial size is normal. There is mild aortic sclerosis. No significant valvular regurgitations There is no pericardial effusion. Jimenez Medina MD 12/02/2018 02:49 PM
--- NOTE | 2018-12-02 17:33 | CONS ---
DATE OF CONSULTATION: DATE OF DICTATION: 12/01/2018 INFECTIOUS DISEASE CONSULTATION HISTORY OF PRESENT ILLNESS: The patient is a 78-year-old male with a history of chronic venous stasis dermatitis, who is evaluated for cellulitis of the right lower extremity. The patient was admitted to the hospital with a 2-day history of worsening shortness of breath and lower extremity edema. He had also noted weepage from the lower extremities. Patient had been seen in the wound care center for chronic venous stasis, dermatitis. Previous wound cultures have been positive for MRSA and pseudomonas. In addition, he complained of episodes of gross hematuria. He denied any fever or chills, no reported traumatic injury. He was evaluated in the emergency room where he was short of breath. Patient was placed on BiPAP mask. He required admission to the intensive care unit. At the present time he is awake and alert, short of breath on BiPAP mask. PAST MEDICAL HISTORY: Positive for diabetes mellitus, atrial fibrillation, hypertension, hyperlipidemia, peripheral vascular disease, chronic venous stasis, dermatitis, history of positive wound culture for MRSA. ALLERGIES: No known allergies. MEDICATION: Include Ecotrin, Glucophage, ramipril, Januvia, Lasix. SOCIAL HISTORY: Lives at home. He is a former smoker. SYSTEMS REVIEW: Neurologic: No loss of consciousness, seizure activity, focal weakness. Cardiac: Negative for chest pain or palpitations. Respiratory: Negative for cough or sputum production. Gastrointestinal: Negative vomiting or diarrhea. Genitourinary: Positive for gross hematuria. LABORATORY DATA: White count 10.5, hematocrit 35.9, platelet count 207, BUN 35, creatinine 1.5. PHYSICAL EXAMINATION: General: On physical examination, he is awake, he is on BiPAP, short of breath at rest. Vital signs: Temperature 98.1, blood pressure 148/63, pulse 80 regular, respirations 18 per minute. HEENT: Sclerae anicteric. Cardiovascular: Heart sounds S1, S2. Lungs: Diminished breath sounds bilaterally. Abdomen: Obese. Soft, nontender. Extremities: Bilateral lower extremity edema with chronic venous stasis, dermatitis. There is superimposed erythema and warmth, right lower extremity. Skin: Dry, no weepage noted. No lymphangitis. IMPRESSION: 1. Acute on chronic respiratory failure. 2. Congestive heart failure. 3. Chronic venous stasis dermatitis. 4. Peripheral vascular disease. 5. Diabetes mellitus. 6. History of methicillin-resistant Staphylococcus aureus. 7. Azotemia. Obtain blood cultures, empiric antibiotic coverage with vancomycin adjusted for renal insufficiency. Local wound care. Thank you for the kind referral. FABIANA JACOBSON M.D. [id number]
[2018-12-02] MEDS: methylPREDNISolone NA SUCC 40 MG/1 ML VIAL IVPUSH SCH (17:55)
[2018-12-02 18:09] LABS: ARTERIAL BLD GAS O2 SATURATION 96.5 % (95-98); ARTERIAL BLOOD GAS BASE EXCESS 11.5 meq/l (-2-2); ARTERIAL BLOOD GAS PCO2 69.8 mmHg (35-45); ARTERIAL BLOOD GAS PO2 82.6 mmHg (80-105); ARTERIAL BLOOD GAS pH 7.37 (7.35-7.45)
[2018-12-02 18:12] LABS: ALLENS TEST POSITIVE
--- NOTE | 2018-12-02 19:10 | PN ---
Progress Note, Physician History of Present Illness: AWAKE, ALERT IN BED TACHYPNEIC ON BIPAP NO C/O PAIN AFEBRILE WBC SLIGHTLY ELEVATED - Current Medication List Current Medications: Active Medications Albuterol/Ipratropium (Duoneb -) 1 amp NEB Q4H PRN PRN Reason: SHORTNESS OF BREATH Aspirin (Ecotrin -) 81 mg PO DAILY [facility] Enoxaparin Sodium (Lovenox -) 40 mg SQ DAILY [facility] Furosemide (Lasix Injection -) 40 mg IVPUSH BID@0600,1400 [facility] Vancomycin HCl (Vancomycin (Pre-Docked)) 1,000 mg in 250 mls @ 166.667 mls/hr IVPB Q24H [facility]; Protocol Insulin Aspart (Novolog Vial Sliding Scale -) 1 vial SQ ACHS [facility]; Protocol Last Admin: 12/02/18 17:50 Dose: Not Given Insulin Detemir (Levemir Vial) 10 units SQ HS [facility] Methylprednisolone Sodium Succinate (Solu-Medrol -) 40 mg IVPUSH Q8H-IV [facility] Last Admin: 12/02/18 17:55 Dose: 40 mg Multivitamins/Minerals/Vitamin C (Tab-A-Vit -) 1 tab PO DAILY [facility] Pantoprazole Sodium (Protonix -) 40 mg PO DAILY [facility] Ramipril (Altace -) 10 mg PO DAILY [facility] - Objective Vital Signs: Vital Signs Temperature 98 F 12/02/18 18:00 Pulse Rate 88 12/02/18 18:00 Respiratory Rate 17 12/02/18 18:00 Blood Pressure 121/65 12/02/18 18:00 O2 Sat by Pulse Oximetry (%) 96 12/02/18 18:12 Constitutional: Yes: No Distress, Obese Cardiovascular: Yes: Regular Rate and Rhythm, S1, S2 Respiratory: Yes: Diminished Gastrointestinal: Yes: Normal Bowel Sounds, Soft, Abdomen, Obese Extremities: Yes: Other (+ CHRONIC VENOUS STASIS DERMATITIS LE + ERYTHEMA / WARMTH R LE) Labs: CBC, BMP 12/02/18 05:20 12/02/18 05:20 Assessment/Plan CELLULITIS LE CHRONIC VENOUS STASIS ACUTE ON CHRONIC RESP FAILURE LEUKOCYTOSIS AZOTEMIA HX MRSA CONTINUE VANCOMYCIN
[2018-12-02] MEDS ORDERED: INSULIN (LEVEMIR) 100 UNITS/ML UNITS SQ SCH (22:00)
[2018-12-02] MEDS: INSULIN (LEVEMIR) 100 UNITS/ML UNITS SQ SCH (22:26)
[2018-12-03] MEDS: methylPREDNISolone NA SUCC 40 MG/1 ML VIAL IVPUSH SCH ×3 (01:58→18:33)
[2018-12-03] MEDS: FUROSEMIDE 40 MG/4 ML INJECTABLE VIAL IVPUSH SCH ×2 (05:53→13:17)
[2018-12-03 06:10] LABS: HEMATOCRIT 36.3 % (35.4-49); HEMOGLOBIN 11.4 GM/dL (11.7-16.9); MCH 28.1 pg (25.7-33.7); MCHC 31.5 g/dl (32.0-35.9); MEAN CELL VOLUME 89.3 fl (80-96); MEAN PLT VOLUME 8.4 fl (7.5-11.1); PLATELET COUNT 230 K/MM3 (134-434); RBC 4.06 M/mm3 (4.00-5.60); RDW 15.4 % (11.9-15.9); WHITE BLOOD COUNT 9.9 K/mm3 (4.0-10.0)
[2018-12-03] MEDS: INSULIN SLIDING SCALE (NOVOLOG) 1 VIAL SQ SCH ×4 (06:12→22:48)
[2018-12-03 06:43] LABS: ALBUMIN 2.9 g/dl (3.4-5.0); BILIRUBIN,TOTAL 0.5 mg/dL (0.2-1); BLOOD UREA NITROGEN 41.2 mg/dL (7-18); CALCIUM 7.9 mg/dL (8.5-10.1); CREATININE 1.6 mg/dL (0.55-1.3); MAGNESIUM 2.4 mg/dL (1.8-2.4); PHOSPHOROUS 2.8 mg/dL (2.5-4.9); POTASSIUM 4.3 mmol/L (3.5-5.1); TOT PROT 6.9 g/dl (6.4-8.2)
[2018-12-03] MEDS: VANCOMYCIN 1 GRAM (PRE-DOCKED) 1,000 MG/250 ML BAG IVPB SCH (10:52)
[2018-12-03] MEDS: PANTOPRAZOLE 40 MG TABLET (FP) PO SCH (10:57)
[2018-12-03] MEDS: MULTIVITAMINS (DAILY MVI) TABLET (FP) PO SCH (10:57)
[2018-12-03] MEDS: ASPIRIN COATED 81 MG TABLET.EC PO SCH (10:57)
[2018-12-03] MEDS: ENOXAPARIN NA (PORCINE) 40 MG/0.4 ML DISP.SYRIN SQ SCH (10:58)
[2018-12-03] MEDS: RAMIPRIL 5 MG CAPSULE (FP) PO SCH (10:59)
--- NOTE | 2018-12-03 11:14 | PN ---
Progress Note (short form) - Note Progress Note: s: no chest pain, palps, dizziness, dyspnea. confused. Current Medications Albuterol/Ipratropium (Duoneb -) 1 amp NEB Q4H PRN PRN Reason: SHORTNESS OF BREATH Aspirin (Ecotrin -) 81 mg PO DAILY [facility] Last Admin: 12/03/18 10:57 Dose: 81 mg Enoxaparin Sodium (Lovenox -) 40 mg SQ DAILY [facility] Last Admin: 12/03/18 10:58 Dose: 40 mg Furosemide (Lasix Injection -) 40 mg IVPUSH BID@0600,1400 [facility] Last Admin: 12/03/18 05:53 Dose: 40 mg Vancomycin HCl (Vancomycin (Pre-Docked)) 1,000 mg in 250 mls @ 166.667 mls/hr IVPB Q24H [facility]; Protocol Last Admin: 12/03/18 10:52 Dose: 166.667 mls/hr Insulin Aspart (Novolog Vial Sliding Scale -) 1 vial SQ ACHS [facility]; Protocol Last Admin: 12/03/18 06:12 Dose: 2 unit Insulin Detemir (Levemir Vial) 10 units SQ HS [facility] Last Admin: 12/02/18 22:26 Dose: 10 unit Methylprednisolone Sodium Succinate (Solu-Medrol -) 40 mg IVPUSH Q8H-IV [facility] Last Admin: 12/03/18 10:57 Dose: 40 mg Multivitamins/Minerals/Vitamin C (Tab-A-Vit -) 1 tab PO DAILY [facility] Last Admin: 12/03/18 10:57 Dose: 1 tab Pantoprazole Sodium (Protonix -) 40 mg PO DAILY [facility] Last Admin: 12/03/18 10:57 Dose: 40 mg Ramipril (Altace -) 10 mg PO DAILY [facility] Last Admin: 12/03/18 10:59 Dose: 10 mg Vital Signs Period Temp Pulse Resp BP Sys/Frank Pulse Ox Last 24 Hr 97.8 F-99.1 F 68-88 17-24 112-154/55-83 92-96 Constitutional: Yes: No Distress, Calm, Obese Eyes: No: Sclera Icterus HENT: No: Nasal Congestion Cardiovascular: Yes: Regular Rate and Rhythm, JVD (possible (TDS habitus)), S1, S2, Other (PMI non diplaced). No: Gallop, Murmur Respiratory: Yes: CTA Bilaterally. No: Accessory Muscle Use, Rales Gastrointestinal: Yes: Normal Bowel Sounds, Soft. No: Tenderness Musculoskeletal: Yes: Other (No kyphosis) Extremities: No: Cold, Cyanosis Edema: Yes (1+ LE) Integumentary: No: Jaundice Neurological: Yes: Alert. No: Seizure Psychiatric: No: Agitated Assessment/Plan tele: NSR, PVCs IMP: -Acute on chronic CHF (type TBD) -Acute on chronic hypercapneic resp failure, suspected underlying ZENIA, ? obesity -hypoventilation--requiring NIPPV here with drowsiness on DOA -Chronic HTN, suspected hypertensive heart disease -DM -Chronic venous stasis, ? cellulitis -Acute on chronic renal insuffiency REC: -renal fxn remains stable with diuresis, still appears volume overloaded. continue IV lasix (40 BID), daily weights -echo nl LV function, nl RV, mild aortic valve sclerosis -BP controlled, cont JOSESITO-I -O2, NIPPV per crit care team -DVT prophylaxis. -treatment of venous stasis and possible superimposed cellulitis as per primary -will plan ischemia eval when euvolemic (may be done as outpt if no sx/s of angina/ischemia here).
--- NOTE | 2018-12-03 11:26 | PN ---
Progress Note (short form) - Note Progress Note: Awake and alert no distress no cough or sob pain in right leg Vital Signs - 24 hr 12/02/18 12/02/18 12/02/18 12:00 14:00 14:35 Temperature 97.8 F Pulse Rate 88 74 Respiratory 19 17 Rate Blood Pressure 112/83 125/63 O2 Sat by Pulse 92 L Oximetry (%) 12/02/18 12/02/18 12/02/18 15:00 18:00 18:12 Temperature 98 F Pulse Rate 88 Respiratory 17 Rate Blood Pressure 121/65 O2 Sat by Pulse 96 96 Oximetry (%) 12/02/18 12/02/18 12/02/18 20:00 21:00 21:31 Temperature 98.2 F Pulse Rate 87 Respiratory 24 H 24 H Rate Blood Pressure 154/78 O2 Sat by Pulse 96 92 L Oximetry (%) 12/03/18 12/03/18 12/03/18 00:00 00:30 02:06 Temperature 99.1 F Pulse Rate 76 74 Respiratory 22 H 22 H Rate Blood Pressure 120/55 L 140/64 O2 Sat by Pulse 92 L Oximetry (%) 12/03/18 12/03/18 12/03/18 04:00 07:21 08:25 Temperature Pulse Rate 68 Respiratory 24 H Rate Blood Pressure 141/66 O2 Sat by Pulse 93 L 92 L 92 L Oximetry (%) Current Medications Generic Name Dose Route Start Last Admin Trade Name Freq PRN Reason Stop Dose Admin Albuterol/Ipratropium 1 amp 12/02/18 11:39 Duoneb - NEB Q4H PRN SHORTNESS OF BREATH Aspirin 81 mg 12/03/18 10:00 12/03/18 10:57 Ecotrin - PO 81 mg DAILY [facility] Administration Enoxaparin Sodium 40 mg 12/03/18 10:00 12/03/18 10:58 Lovenox - SQ 40 mg DAILY [facility] Administration Furosemide 40 mg 12/03/18 06:00 12/03/18 05:53 Lasix Injection - IVPUSH 40 mg BID@0600,1400 [facility] Administration Vancomycin HCl 1,000 mg in 250 mls @ 166.667 mls/hr 12/03/18 08:06 12/03/18 10:52 Vancomycin (Pre-Docked) IVPB 166.667 mls/hr Q24H [facility] Administration Protocol Insulin Aspart 1 vial 06/24/19 16:30 12/03/18 06:12 Novolog Vial Sliding Scale - SQ 2 unit ACHS [facility] Administration Protocol Insulin Detemir 10 units 12/02/18 22:00 12/02/18 22:26 Levemir Vial SQ 10 unit HS [facility] Administration Methylprednisolone Sodium Succinate 40 mg 12/02/18 18:00 12/03/18 10:57 Solu-Medrol - IVPUSH 40 mg Q8H-IV [facility] Administration Multivitamins/Minerals/Vitamin C 1 tab 12/03/18 10:00 12/03/18 10:57 Tab-A-Vit - PO 1 tab DAILY [facility] Administration Pantoprazole Sodium 40 mg 12/03/18 10:00 12/03/18 10:57 Protonix - PO 40 mg DAILY [facility] Administration Ramipril 10 mg 12/03/18 10:00 12/03/18 10:59 Altace - PO 10 mg DAILY [facility] Administration Laboratory Results - last 24 hr 12/02/18 12/02/18 12/02/18 10:45 11:29 17:47 WBC RBC Hgb Hct MCV MCH MCHC RDW Plt Count MPV Puncture Site ABG pH ABG pCO2 at Pt Temp ABG pO2 at Pt Temp ABG HCO3 ABG O2 Sat (Measured) ABG O2 Content ABG Base Excess Julius Test Oxygen Flow Rate Vent Mode Vent Rate Mechanical Rate Pressure Support Vent Sodium Potassium Chloride Carbon Dioxide Anion Gap BUN Creatinine Est GFR (CKD-EPI)AfAm Est GFR (CKD-EPI)NonAf POC Glucometer 117 224 Random Glucose Calcium Phosphorus Magnesium Total Bilirubin AST ALT Alkaline Phosphatase Ammonia 22.60 Total Protein Albumin 12/02/18 12/02/18 12/03/18 18:03 22:25 05:00 WBC 9.9 RBC 4.06 Hgb 11.4 L Hct 36.3 MCV 89.3 MCH 28.1 MCHC 31.5 L RDW 15.4 Plt Count 230 MPV 8.4 Puncture Site Right radial ABG pH 7.37 ABG pCO2 at Pt Temp 69.8 H ABG pO2 at Pt Temp 82.6 ABG HCO3 38.9 H ABG O2 Sat (Measured) 96.5 ABG O2 Content 14.7 L ABG Base Excess 11.5 H Julius Test Positive Oxygen Flow Rate 30% Vent Mode S/t Vent Rate 18 Mechanical Rate Bipap Pressure Support Vent 15/5 Sodium Potassium Chloride Carbon Dioxide Anion Gap BUN Creatinine Est GFR (CKD-EPI)AfAm Est GFR (CKD-EPI)NonAf POC Glucometer 278 Random Glucose Calcium Phosphorus Magnesium Total Bilirubin AST ALT Alkaline Phosphatase Ammonia Total Protein Albumin 12/03/18 12/03/18 12/03/18 05:00 06:09 11:08 WBC RBC Hgb Hct MCV MCH MCHC RDW Plt Count MPV Puncture Site ABG pH ABG pCO2 at Pt Temp ABG pO2 at Pt Temp ABG HCO3 ABG O2 Sat (Measured) ABG O2 Content ABG Base Excess Julius Test Oxygen Flow Rate Vent Mode Vent Rate Mechanical Rate Pressure Support Vent Sodium 139 Potassium 4.3 Chloride 96 L Carbon Dioxide 39 H Anion Gap 4 L BUN 41.2 H Creatinine 1.6 H Est GFR (CKD-EPI)AfAm 47.46 Est GFR (CKD-EPI)NonAf 40.95 POC Glucometer 187 218 Random Glucose 181 H Calcium 7.9 L Phosphorus 2.8 Magnesium 2.4 Total Bilirubin 0.5 AST 11 L ALT 15 Alkaline Phosphatase 71 Ammonia Total Protein 6.9 Albumin 2.9 L S1 S2 RRR Lungs decreased breath sounds B/L abd- soft, obese, NT edema + rt leg erythema, edema >left-- about the same chronic venous changes PLAN on BIPAP iv antibiotics short course steroids pulmonary ,ID eval noted iv lasix continue with meds OOB PT eval Problem List - Problems (1) KELLI (acute kidney injury) Code(s): N17.9 - ACUTE KIDNEY FAILURE, UNSPECIFIED (2) CHF exacerbation Code(s): I50.9 - HEART FAILURE, UNSPECIFIED (3) Fluid overload Code(s): E87.70 - FLUID OVERLOAD, UNSPECIFIED Qualifiers: Hypervolemia type: unspecified Qualified Code(s): E87.70 - Fluid overload, unspecified (4) Cellulitis of right leg Code(s): L03.115 - CELLULITIS OF RIGHT LOWER LIMB (5) Hypertension Code(s): I10 - ESSENTIAL (PRIMARY) HYPERTENSION
--- NOTE | 2018-12-03 11:33 | PN ---
Progress Note, Physician History of Present Illness: AWAKE, ALERT IN BED BREATHING IMPROVED BREATHING NON LABORED ON NASAL CANNULA NO C/O PAIN AFEBRILE WBC IMPROVED WNL - Current Medication List Current Medications: Active Medications Albuterol/Ipratropium (Duoneb -) 1 amp NEB Q4H PRN PRN Reason: SHORTNESS OF BREATH Aspirin (Ecotrin -) 81 mg PO DAILY [facility] Last Admin: 12/03/18 10:57 Dose: 81 mg Enoxaparin Sodium (Lovenox -) 40 mg SQ DAILY [facility] Last Admin: 12/03/18 10:58 Dose: 40 mg Furosemide (Lasix Injection -) 40 mg IVPUSH BID@0600,1400 [facility] Last Admin: 12/03/18 05:53 Dose: 40 mg Vancomycin HCl (Vancomycin (Pre-Docked)) 1,000 mg in 250 mls @ 166.667 mls/hr IVPB Q24H [facility]; Protocol Last Admin: 12/03/18 10:52 Dose: 166.667 mls/hr Insulin Aspart (Novolog Vial Sliding Scale -) 1 vial SQ ACHS [facility]; Protocol Last Admin: 12/03/18 06:12 Dose: 2 unit Insulin Detemir (Levemir Vial) 10 units SQ HS [facility] Last Admin: 12/02/18 22:26 Dose: 10 unit Methylprednisolone Sodium Succinate (Solu-Medrol -) 40 mg IVPUSH Q8H-IV [facility] Last Admin: 12/03/18 10:57 Dose: 40 mg Multivitamins/Minerals/Vitamin C (Tab-A-Vit -) 1 tab PO DAILY [facility] Last Admin: 12/03/18 10:57 Dose: 1 tab Pantoprazole Sodium (Protonix -) 40 mg PO DAILY [facility] Last Admin: 12/03/18 10:57 Dose: 40 mg Ramipril (Altace -) 10 mg PO DAILY [facility] Last Admin: 12/03/18 10:59 Dose: 10 mg - Objective Vital Signs: Vital Signs Temperature 99.1 F 12/03/18 02:06 Pulse Rate 68 12/03/18 04:00 Respiratory Rate 24 H 12/03/18 04:00 Blood Pressure 141/66 12/03/18 04:00 O2 Sat by Pulse Oximetry (%) 92 L 12/03/18 08:25 Constitutional: Yes: No Distress Eyes: Yes: Conjunctiva Clear Cardiovascular: Yes: Regular Rate and Rhythm, S1, S2 Respiratory: Yes: Diminished Gastrointestinal: Yes: Normal Bowel Sounds Extremities: Yes: Other (LE SWELLING IMPROVED; DECREASED R LE ERYTHEMA/ WARMTH) Labs: CBC, BMP 12/03/18 05:00 12/03/18 05:00 Assessment/Plan CELLULITIS LE IMPROVED CHRONIC VENOUS STASIS ACUTE ON CHRONIC RESP FAILURE LEUKOCYTOSIS RESOLVED AZOTEMIA HX MRSA CONTINUE VANCOMYCIN
--- NOTE | 2018-12-03 13:07 | PN ---
Progress Note (short form) - Note Progress Note: PULMONARY Breathing better. Minimal cough. More alert, awake today. Vital Signs Period Temp Pulse Resp BP Sys/Frank Pulse Ox Last 24 Hr 97.8 F-99.1 F 68-88 17-24 120-154/55-78 92-96 Intake & Output 11/30/18 12/01/18 12/02/18 12/03/18 23:59 23:59 23:59 23:59 Intake Total 500 390 580 400 Output Total 2000 1000 500 Balance -1500 -610 80 400 Weight 100 kg 114.759 kg 112.491 kg Gen: more alert, awake, less tachypneic Heart: RRR Lung: decreased breath sounds at the bases Abd: soft, nontender Ext: chronic changes CBC, BMP 12/03/18 05:00 12/03/18 05:00 Active Medications Albuterol/Ipratropium (Duoneb -) 1 amp NEB Q4H PRN PRN Reason: SHORTNESS OF BREATH Aspirin (Ecotrin -) 81 mg PO DAILY [facility] Last Admin: 12/03/18 10:57 Dose: 81 mg Enoxaparin Sodium (Lovenox -) 40 mg SQ DAILY [facility] Last Admin: 12/03/18 10:58 Dose: 40 mg Furosemide (Lasix Injection -) 40 mg IVPUSH BID@0600,1400 [facility] Last Admin: 12/03/18 05:53 Dose: 40 mg Vancomycin HCl (Vancomycin (Pre-Docked)) 1,000 mg in 250 mls @ 166.667 mls/hr IVPB Q24H [facility]; Protocol Last Admin: 12/03/18 10:52 Dose: 166.667 mls/hr Insulin Aspart (Novolog Vial Sliding Scale -) 1 vial SQ ACHS [facility]; Protocol Last Admin: 12/03/18 06:12 Dose: 2 unit Insulin Detemir (Levemir Vial) 10 units SQ HS [facility] Last Admin: 12/02/18 22:26 Dose: 10 unit Methylprednisolone Sodium Succinate (Solu-Medrol -) 40 mg IVPUSH Q8H-IV [facility] Last Admin: 12/03/18 10:57 Dose: 40 mg Multivitamins/Minerals/Vitamin C (Tab-A-Vit -) 1 tab PO DAILY [facility] Last Admin: 12/03/18 10:57 Dose: 1 tab Pantoprazole Sodium (Protonix -) 40 mg PO DAILY [facility] Last Admin: 12/03/18 10:57 Dose: 40 mg Ramipril (Altace -) 10 mg PO DAILY [facility] Last Admin: 12/03/18 10:59 Dose: 10 mg A/P Acute on Chronic Hypercapneic Respiratory Failure Acute on Chronic Diastolic Heart Failure Morbid Obesity Likely ZENIA/OHS r/o Cellulitis Acute on Chronic Renal Failure HTN DM - continue lasix - monitor urine output, creatinine - empiric short course of medrol - inhaled bronchodilators - O2 to keep Spo2 88-92% - on empiric antibiotics - will need outpt PFTs, PSG - DVT prophylaxis
[2018-12-03] MEDS: INSULIN (LEVEMIR) 100 UNITS/ML UNITS SQ SCH (22:48)
[2018-12-04] MEDS: methylPREDNISolone NA SUCC 40 MG/1 ML VIAL IVPUSH SCH ×2 (02:04→09:27)
[2018-12-04 06:22] LABS: BASO % 0.1 % (0-2.0); HEMOGLOBIN 11.9 GM/dL (11.7-16.9); LYMPH % 3.1 % (8-40); MCH 28.5 pg (25.7-33.7); MCHC 31.3 g/dl (32.0-35.9); MEAN CELL VOLUME 90.9 fl (80-96); MEAN PLT VOLUME 8.4 fl (7.5-11.1); MONO % 3.4 % (3.8-10.2); NEUT % 93.4 % (42.8-82.8); PLATELET COUNT 242 K/MM3 (134-434); RBC 4.18 M/mm3 (4.00-5.60); RDW 15.5 % (11.9-15.9); WHITE BLOOD COUNT 14.2 K/mm3 (4.0-10.0)
[2018-12-04] MEDS: INSULIN SLIDING SCALE (NOVOLOG) 1 VIAL SQ SCH ×4 (06:27→21:07)
[2018-12-04] MEDS: FUROSEMIDE 40 MG/4 ML INJECTABLE VIAL IVPUSH SCH ×2 (06:27→16:51)
[2018-12-04 06:33] LABS: BILIRUBIN,TOTAL 0.3 mg/dL (0.2-1); BLOOD UREA NITROGEN 45.5 mg/dL (7-18); CREATININE 1.4 mg/dL (0.55-1.3); POTASSIUM 4.5 mmol/L (3.5-5.1); TOT PROT 7.4 g/dl (6.4-8.2)
[2018-12-04] MEDS: VANCOMYCIN 1 GRAM (PRE-DOCKED) 1,000 MG/250 ML BAG IVPB SCH (09:18)
[2018-12-04] MEDS: MULTIVITAMINS (DAILY MVI) TABLET (FP) PO SCH (09:28)
[2018-12-04] MEDS: PANTOPRAZOLE 40 MG TABLET (FP) PO SCH (09:28)
[2018-12-04] MEDS: RAMIPRIL 5 MG CAPSULE (FP) PO SCH (09:29)
[2018-12-04] MEDS: ENOXAPARIN NA (PORCINE) 40 MG/0.4 ML DISP.SYRIN SQ SCH (09:29)
[2018-12-04] MEDS: ASPIRIN COATED 81 MG TABLET.EC PO SCH (09:29)
[2018-12-04 10:16] LABS: ANISOCYTOSIS 1+; MACROCYTOSIS 0; PLATELET ESTIMATE NORMAL
--- NOTE | 2018-12-04 10:25 | PN ---
Progress Note (short form) - Note Progress Note: Awake and alert no distress no cough or sob Vital Signs - 24 hr 12/03/18 12/03/18 12/03/18 11:20 14:00 18:00 Temperature 98.1 F 98.0 F Pulse Rate 90 97 H Respiratory 18 20 Rate Blood Pressure 120/64 132/58 L O2 Sat by Pulse 95 Oximetry (%) 12/03/18 12/03/18 12/03/18 18:37 19:07 21:00 Temperature 98.1 F Pulse Rate 93 H Respiratory 19 19 Rate Blood Pressure 111/47 L O2 Sat by Pulse 96 96 Oximetry (%) 12/03/18 12/03/18 12/04/18 21:28 22:00 00:26 Temperature 98.2 F Pulse Rate 78 Respiratory 20 Rate Blood Pressure 136/62 O2 Sat by Pulse 99 97 Oximetry (%) 12/04/18 12/04/18 12/04/18 02:00 03:35 06:00 Temperature 98 F 98.1 F Pulse Rate 71 78 Respiratory 20 18 Rate Blood Pressure 116/57 L 141/64 O2 Sat by Pulse 96 Oximetry (%) 12/04/18 12/04/18 12/04/18 06:15 07:45 08:00 Temperature Pulse Rate 74 Respiratory Rate Blood Pressure O2 Sat by Pulse 99 97 99 Oximetry (%) 12/04/18 09:00 Temperature Pulse Rate 88 Respiratory 22 H Rate Blood Pressure 107/54 L O2 Sat by Pulse Oximetry (%) Current Medications Generic Name Dose Route Start Last Admin Trade Name Freq PRN Reason Stop Dose Admin Albuterol/Ipratropium 1 amp 12/02/18 11:39 Duoneb - NEB Q4H PRN SHORTNESS OF BREATH Aspirin 81 mg 12/03/18 10:00 12/04/18 09:29 Ecotrin - PO 81 mg DAILY [facility] Administration Enoxaparin Sodium 40 mg 12/03/18 10:00 12/04/18 09:29 Lovenox - SQ 40 mg DAILY [facility] Administration Furosemide 40 mg 12/03/18 06:00 12/04/18 06:27 Lasix Injection - IVPUSH 40 mg BID@0600,1400 [facility] Administration Vancomycin HCl 1,000 mg in 250 mls @ 166.667 mls/hr 12/03/18 08:06 12/04/18 09:18 Vancomycin (Pre-Docked) IVPB 166.667 mls/hr Q24H [facility] Administration Protocol Insulin Aspart 1 vial 12/02/18 16:30 12/04/18 06:27 Novolog Vial Sliding Scale - SQ 6 unit ACHS [facility] Administration Protocol Insulin Detemir 10 units 12/02/18 22:00 12/03/18 22:48 Levemir Vial SQ 10 unit HS [facility] Administration Methylprednisolone Sodium Succinate 40 mg 12/02/18 18:00 12/04/18 09:27 Solu-Medrol - IVPUSH 40 mg Q8H-IV [facility] Administration Multivitamins/Minerals/Vitamin C 1 tab 12/03/18 10:00 12/04/18 09:28 Tab-A-Vit - PO 1 tab DAILY [facility] Administration Pantoprazole Sodium 40 mg 12/03/18 10:00 12/04/18 09:28 Protonix - PO 40 mg DAILY [facility] Administration Ramipril 10 mg 12/03/18 10:00 12/04/18 09:29 Altace - PO 10 mg DAILY [facility] Administration Laboratory Results - last 24 hr 12/03/18 12/03/18 12/03/18 11:08 18:30 22:47 WBC RBC Hgb Hct MCV MCH MCHC RDW Plt Count MPV Absolute Neuts (auto) Neutrophils % Neutrophils % (Manual) Band Neutrophils % Lymphocytes % Lymphocytes % (Manual) Monocytes % Monocytes % (Manual) Eosinophils % Eosinophils % (Manual) Basophils % Basophils % (Manual) Myelocytes % (Man) Promyelocytes % (Man) Blast Cells % (Manual) Nucleated RBC % Metamyelocytes Hypochromia Platelet Estimate Polychromasia Poikilocytosis Anisocytosis Microcytosis Macrocytosis Sodium Potassium Chloride Carbon Dioxide Anion Gap BUN Creatinine Est GFR (CKD-EPI)AfAm Est GFR (CKD-EPI)NonAf POC Glucometer 218 283 294 Random Glucose Calcium Total Bilirubin AST ALT Alkaline Phosphatase Total Protein Albumin 12/04/18 12/04/18 12/04/18 05:25 05:25 05:49 WBC 14.2 H RBC 4.18 Hgb 11.9 Hct 38.0 MCV 90.9 MCH 28.5 MCHC 31.3 L RDW 15.5 Plt Count 242 MPV 8.4 Absolute Neuts (auto) 13.2 H Neutrophils % 93.4 H Neutrophils % (Manual) 98.0 H Band Neutrophils % 0.0 Lymphocytes % 3.1 L D Lymphocytes % (Manual) 0.0 L Monocytes % 3.4 L Monocytes % (Manual) 2 L Eosinophils % 0.0 D Eosinophils % (Manual) 0.0 D Basophils % 0.1 Basophils % (Manual) 0.0 Myelocytes % (Man) 0 Promyelocytes % (Man) 0 Blast Cells % (Manual) 0 Nucleated RBC % 0 Metamyelocytes 0 Hypochromia 0 Platelet Estimate Normal Polychromasia 0 Poikilocytosis 0 Anisocytosis 1+ Microcytosis 1+ Macrocytosis 0 Sodium 137 Potassium 4.5 Chloride 95 L Carbon Dioxide 40 H Anion Gap 2 L BUN 45.5 H Creatinine 1.4 H Est GFR (CKD-EPI)AfAm 55.77 Est GFR (CKD-EPI)NonAf 48.12 POC Glucometer 278 Random Glucose 286 H Calcium 8.0 L Total Bilirubin 0.3 AST 10 L ALT 16 Alkaline Phosphatase 71 Total Protein 7.4 Albumin 3.0 L S1 S2 RRR Lungs decreased breath sounds B/L abd- soft, obese, NT edema + rt leg erythema, edema >left-- decreased chronic venous changes PLAN on BIPAP iv antibiotics short course steroids pulmonary ,ID eval noted iv lasix continue with meds OOB PT eval ok to transfer to med surg Problem List - Problems (1) KELLI (acute kidney injury) Code(s): N17.9 - ACUTE KIDNEY FAILURE, UNSPECIFIED (2) CHF exacerbation Code(s): I50.9 - HEART FAILURE, UNSPECIFIED Qualifiers: Heart failure type: diastolic Qualified Code(s): I50.33 - Acute on chronic diastolic (congestive) heart failure (3) Fluid overload Code(s): E87.70 - FLUID OVERLOAD, UNSPECIFIED Qualifiers: Hypervolemia type: unspecified Qualified Code(s): E87.70 - Fluid overload, unspecified (4) Cellulitis of right leg Code(s): L03.115 - CELLULITIS OF RIGHT LOWER LIMB (5) Hypertension Code(s): I10 - ESSENTIAL (PRIMARY) HYPERTENSION
--- NOTE | 2018-12-04 10:51 | PN ---
Progress Note (short form) - Note Progress Note: s: no chest pain, palps, dizziness, dyspnea. Current Medications Albuterol/Ipratropium (Duoneb -) 1 amp NEB Q4H PRN PRN Reason: SHORTNESS OF BREATH Aspirin (Ecotrin -) 81 mg PO DAILY [facility] Last Admin: 12/04/18 09:29 Dose: 81 mg Enoxaparin Sodium (Lovenox -) 40 mg SQ DAILY [facility] Last Admin: 12/04/18 09:29 Dose: 40 mg Furosemide (Lasix Injection -) 40 mg IVPUSH BID@0600,1400 [facility] Last Admin: 12/04/18 06:27 Dose: 40 mg Vancomycin HCl (Vancomycin (Pre-Docked)) 1,000 mg in 250 mls @ 166.667 mls/hr IVPB Q24H [facility]; Protocol Last Admin: 12/04/18 09:18 Dose: 166.667 mls/hr Insulin Aspart (Novolog Vial Sliding Scale -) 1 vial SQ ACHS [facility]; Protocol Last Admin: 12/04/18 06:27 Dose: 6 unit Insulin Detemir (Levemir Vial) 10 units SQ HS [facility] Last Admin: 12/03/18 22:48 Dose: 10 unit Methylprednisolone Sodium Succinate (Solu-Medrol -) 40 mg IVPUSH Q8H-IV [facility] Last Admin: 12/04/18 09:27 Dose: 40 mg Multivitamins/Minerals/Vitamin C (Tab-A-Vit -) 1 tab PO DAILY [facility] Last Admin: 12/04/18 09:28 Dose: 1 tab Pantoprazole Sodium (Protonix -) 40 mg PO DAILY [facility] Last Admin: 12/04/18 09:28 Dose: 40 mg Ramipril (Altace -) 10 mg PO DAILY [facility] Last Admin: 12/04/18 09:29 Dose: 10 mg Vital Signs Period Temp Pulse Resp BP Sys/Frank Pulse Ox Last 24 Hr 98 F-98.2 F 71-97 18-22 107-141/47-64 95-99 Constitutional: Yes: No Distress, Calm, Obese Eyes: No: Sclera Icterus HENT: No: Nasal Congestion Cardiovascular: Yes: Regular Rate and Rhythm, JVD (possible (TDS habitus)), S1, S2, Other (PMI non diplaced). No: Gallop, Murmur Respiratory: Yes: CTA Bilaterally. No: Accessory Muscle Use, Rales Gastrointestinal: Yes: Normal Bowel Sounds, Soft. No: Tenderness Musculoskeletal: Yes: Other (No kyphosis) Extremities: No: Cold, Cyanosis Edema: Yes (1+ LE) Integumentary: No: Jaundice Neurological: Yes: Alert. No: Seizure Psychiatric: No: Agitated Assessment/Plan tele: NSR, PVCs IMP: -Acute on chronic CHF (type TBD) -Acute on chronic hypercapneic resp failure, suspected underlying ZENIA, ? obesity -hypoventilation--requiring NIPPV here with drowsiness on DOA -Chronic HTN, suspected hypertensive heart disease -DM -Chronic venous stasis, ? cellulitis -Acute on chronic renal insuffiency REC: -renal fxn improving with diuresis, still appears volume overloaded. continue IV lasix (40 BID), daily weights -echo nl LV function, nl RV, mild aortic valve sclerosis -BP controlled, cont JOSESITO-I -O2, NIPPV per crit care team -DVT prophylaxis. -treatment of venous stasis and possible superimposed cellulitis as per primary -will plan ischemia eval when euvolemic (may be done as outpt if no sx/s of angina/ischemia here).
--- NOTE | 2018-12-04 11:21 | PN ---
Progress Note, Physician History of Present Illness: AWAKE, ALERT OOB IN CHAIR BREATHING IMPROVED BREATHING NON LABORED ON NASAL CANNULA NO C/O LEG PAIN AFEBRILE WBC INCREASED ON STEROIDS - Current Medication List Current Medications: Active Medications Albuterol/Ipratropium (Duoneb -) 1 amp NEB Q4H PRN PRN Reason: SHORTNESS OF BREATH Aspirin (Ecotrin -) 81 mg PO DAILY [facility] Last Admin: 12/04/18 09:29 Dose: 81 mg Enoxaparin Sodium (Lovenox -) 40 mg SQ DAILY [facility] Last Admin: 12/04/18 09:29 Dose: 40 mg Furosemide (Lasix Injection -) 40 mg IVPUSH BID@0600,1400 [facility] Last Admin: 12/04/18 06:27 Dose: 40 mg Vancomycin HCl (Vancomycin (Pre-Docked)) 1,000 mg in 250 mls @ 166.667 mls/hr IVPB Q24H [facility]; Protocol Last Admin: 12/04/18 09:18 Dose: 166.667 mls/hr Insulin Aspart (Novolog Vial Sliding Scale -) 1 vial SQ ACHS [facility]; Protocol Last Admin: 12/04/18 06:27 Dose: 6 unit Insulin Detemir (Levemir Vial) 10 units SQ HS [facility] Last Admin: 12/03/18 22:48 Dose: 10 unit Methylprednisolone Sodium Succinate (Solu-Medrol -) 40 mg IVPUSH Q8H-IV [facility] Last Admin: 12/04/18 09:27 Dose: 40 mg Multivitamins/Minerals/Vitamin C (Tab-A-Vit -) 1 tab PO DAILY [facility] Last Admin: 12/04/18 09:28 Dose: 1 tab Mupirocin (Bactroban 2% Cream -) 1 applic TP BID [facility] Pantoprazole Sodium (Protonix -) 40 mg PO DAILY [facility] Last Admin: 12/04/18 09:28 Dose: 40 mg Ramipril (Altace -) 10 mg PO DAILY [facility] Last Admin: 12/04/18 09:29 Dose: 10 mg - Objective Vital Signs: Vital Signs Temperature 98.1 F 12/04/18 06:00 Pulse Rate 88 12/04/18 09:00 Respiratory Rate 22 H 12/04/18 09:00 Blood Pressure 107/54 L 12/04/18 09:00 O2 Sat by Pulse Oximetry (%) 99 12/04/18 08:00 Constitutional: Yes: No Distress Eyes: Yes: Conjunctiva Clear Cardiovascular: Yes: Regular Rate and Rhythm, S1, S2 Respiratory: Yes: Diminished Gastrointestinal: Yes: Normal Bowel Sounds, Soft. No: Tenderness Extremities: Yes: Other (ERYTHEMA/ WARMTH R LE NEARLY ALL RESOLVED) Edema: Yes Edema: LLE: 1+, RLE: 1+ Integumentary: Yes: Venous Stasis Changes Labs: CBC, BMP 12/04/18 05:25 12/04/18 05:25 Assessment/Plan CELLULITIS LE IMPROVED CHRONIC VENOUS STASIS ACUTE ON CHRONIC RESP FAILURE LEUKOCYTOSIS RESOLVED AZOTEMIA HX MRSA CONTINUE VANCOMYCIN ADDITIONAL 24HR
--- NOTE | 2018-12-04 12:19 | PN ---
Progress Note (short form) - Note Progress Note: PULMONARY Breathing continues to improve. Minimal cough. Vital Signs Period Temp Pulse Resp BP Sys/Frank Pulse Ox Last 24 Hr 98 F-98.2 F 71-97 18-22 107-141/47-64 96-99 Gen: NAD in chair Heart: RRR Lung: decreased breath sounds at the bases Abd: soft, nontender Ext: chronic changes CBC, BMP 12/04/18 05:25 12/04/18 05:25 Active Medications Albuterol/Ipratropium (Duoneb -) 1 amp NEB Q4H PRN PRN Reason: SHORTNESS OF BREATH Aspirin (Ecotrin -) 81 mg PO DAILY [facility] Last Admin: 12/04/18 09:29 Dose: 81 mg Enoxaparin Sodium (Lovenox -) 40 mg SQ DAILY [facility] Last Admin: 12/04/18 09:29 Dose: 40 mg Furosemide (Lasix Injection -) 40 mg IVPUSH BID@0600,1400 [facility] Last Admin: 12/04/18 06:27 Dose: 40 mg Vancomycin HCl (Vancomycin (Pre-Docked)) 1,000 mg in 250 mls @ 166.667 mls/hr IVPB Q24H [facility]; Protocol Last Admin: 12/04/18 09:18 Dose: 166.667 mls/hr Insulin Aspart (Novolog Vial Sliding Scale -) 1 vial SQ ACHS [facility]; Protocol Last Admin: 12/04/18 12:11 Dose: 8 unit Insulin Detemir (Levemir Vial) 10 units SQ HS [facility] Last Admin: 12/03/18 22:48 Dose: 10 unit Methylprednisolone Sodium Succinate (Solu-Medrol -) 40 mg IVPUSH Q8H-IV [facility] Last Admin: 12/04/18 09:27 Dose: 40 mg Multivitamins/Minerals/Vitamin C (Tab-A-Vit -) 1 tab PO DAILY [facility] Last Admin: 12/04/18 09:28 Dose: 1 tab Mupirocin (Bactroban 2% Cream -) 1 applic TP BID [facility] Pantoprazole Sodium (Protonix -) 40 mg PO DAILY [facility] Last Admin: 12/04/18 09:28 Dose: 40 mg Ramipril (Altace -) 10 mg PO DAILY [facility] Last Admin: 12/04/18 09:29 Dose: 10 mg A/P Acute on Chronic Hypercapneic Respiratory Failure improving Acute on Chronic Diastolic Heart Failure Morbid Obesity Likely ZENIA/OHS r/o Cellulitis Acute on Chronic Renal Failure HTN DM - continue lasix - monitor urine output, creatinine - will d/c empiric medrol - inhaled bronchodilators - O2 to keep Spo2 88-92% - on empiric antibiotics - will need outpt PFTs, PSG - DVT prophylaxis
[2018-12-04] MEDS ORDERED: PT OWN MED DRAWER 7, Y5N ONE (16:36)
[2018-12-04] MEDS: MUPIROCIN CA 2% TOPICAL CREAM 15 GM TUBE TP SCH ×2 (16:51→21:06)
[2018-12-04] MEDS: INSULIN (LEVEMIR) 100 UNITS/ML UNITS SQ SCH (21:06)
[2018-12-05] MEDS: FUROSEMIDE 40 MG/4 ML INJECTABLE VIAL IVPUSH SCH ×2 (05:59→14:38)
[2018-12-05] MEDS: INSULIN SLIDING SCALE (NOVOLOG) 1 VIAL SQ SCH ×4 (06:02→21:29)
[2018-12-05] MEDS: PANTOPRAZOLE 40 MG TABLET (FP) PO SCH (10:47)
[2018-12-05] MEDS: ENOXAPARIN NA (PORCINE) 40 MG/0.4 ML DISP.SYRIN SQ SCH (10:48)
--- NOTE | 2018-12-05 10:48 | PN ---
Progress Note (short form) - Note Progress Note: Awake and alert no distress no cough or sob sitting up in chair Vital Signs - 24 hr 12/04/18 12/04/18 12/04/18 12:38 14:00 14:21 Temperature 97.9 F Pulse Rate 82 Respiratory 20 Rate Blood Pressure 144/59 L O2 Sat by Pulse 98 98 Oximetry (%) 12/04/18 12/04/18 12/04/18 15:32 16:57 17:01 Temperature Pulse Rate 80 Respiratory 16 Rate Blood Pressure 129/94 O2 Sat by Pulse 98 97 Oximetry (%) 12/04/18 12/04/18 12/05/18 18:16 22:00 02:00 Temperature 98.4 F 97.8 F Pulse Rate 80 79 Respiratory 18 18 Rate Blood Pressure 124/65 128/59 L O2 Sat by Pulse 96 Oximetry (%) 12/05/18 12/05/18 12/05/18 04:00 08:02 09:00 Temperature Pulse Rate 76 Respiratory 18 Rate Blood Pressure 131/57 L O2 Sat by Pulse 100 96 Oximetry (%) Current Medications Generic Name Dose Route Start Last Admin Trade Name Freq PRN Reason Stop Dose Admin Albuterol/Ipratropium 1 amp 12/02/18 11:39 Duoneb - NEB Q4H PRN SHORTNESS OF BREATH Aspirin 81 mg 12/03/18 10:00 12/04/18 09:29 Ecotrin - PO 81 mg DAILY [facility] Administration Enoxaparin Sodium 40 mg 12/03/18 10:00 12/04/18 09:29 Lovenox - SQ 40 mg DAILY [facility] Administration Furosemide 40 mg 12/03/18 06:00 12/05/18 05:59 Lasix Injection - IVPUSH 40 mg BID@0600,1400 [facility] Administration Vancomycin HCl 1,000 mg in 250 mls @ 166.667 mls/hr 12/03/18 08:06 12/04/18 09:18 Vancomycin (Pre-Docked) IVPB 166.667 mls/hr Q24H [facility] Administration Protocol Insulin Aspart 1 vial 12/02/18 16:30 12/05/18 06:02 Novolog Vial Sliding Scale - SQ Not Given ACHS [facility] Protocol Insulin Detemir 10 units 12/02/18 22:00 12/04/18 21:06 Levemir Vial SQ 10 unit HS [facility] Administration Multivitamins/Minerals/Vitamin C 1 tab 12/03/18 10:00 12/04/18 09:28 Tab-A-Vit - PO 1 tab DAILY [facility] Administration Mupirocin 1 applic 12/04/18 11:15 12/04/18 21:06 Bactroban 2% Cream - TP 1 applic BID [facility] Administration Pantoprazole Sodium 40 mg 12/03/18 10:00 12/04/18 09:28 Protonix - PO 40 mg DAILY [facility] Administration Ramipril 10 mg 12/03/18 10:00 12/04/18 09:29 Altace - PO 10 mg DAILY [facility] Administration Laboratory Results - last 24 hr 12/04/18 12/04/18 12/04/18 11:50 17:41 20:53 POC Glucometer 316 327 302 12/05/18 05:32 POC Glucometer 142 S1 S2 RRR Lungs decreased breath sounds B/L abd- soft, obese, NT edema + rt leg erythema, edema >left-- decreased chronic venous changes PLAN on BIPAP iv antibiotics clinically improving short course steroids-- may dc today pulmonary ,ID eval noted iv lasix continue with meds OOB PT eval ok to transfer to med surg Problem List - Problems (1) KELLI (acute kidney injury) Code(s): N17.9 - ACUTE KIDNEY FAILURE, UNSPECIFIED (2) CHF exacerbation Code(s): I50.9 - HEART FAILURE, UNSPECIFIED Qualifiers: Heart failure type: diastolic Qualified Code(s): I50.33 - Acute on chronic diastolic (congestive) heart failure (3) Fluid overload Code(s): E87.70 - FLUID OVERLOAD, UNSPECIFIED Qualifiers: Hypervolemia type: unspecified Qualified Code(s): E87.70 - Fluid overload, unspecified (4) Cellulitis of right leg Code(s): L03.115 - CELLULITIS OF RIGHT LOWER LIMB (5) Hypertension Code(s): I10 - ESSENTIAL (PRIMARY) HYPERTENSION
[2018-12-05] MEDS: RAMIPRIL 5 MG CAPSULE (FP) PO SCH (10:49)
[2018-12-05] MEDS: ASPIRIN COATED 81 MG TABLET.EC PO SCH (10:50)
[2018-12-05] MEDS: VANCOMYCIN 1 GRAM (PRE-DOCKED) 1,000 MG/250 ML BAG IVPB SCH (10:50)
[2018-12-05] MEDS: MULTIVITAMINS (DAILY MVI) TABLET (FP) PO SCH (10:52)
--- NOTE | 2018-12-05 10:57 | PN ---
Progress Note, Physician History of Present Illness: AWAKE, ALERT OOB IN CHAIR BREATHING IMPROVED BREATHING NON LABORED ON NASAL CANNULA NO C/O LEG PAIN AFEBRILE WBC INCREASED ON STEROIDS - Current Medication List Current Medications: Active Medications Albuterol/Ipratropium (Duoneb -) 1 amp NEB Q4H PRN PRN Reason: SHORTNESS OF BREATH Aspirin (Ecotrin -) 81 mg PO DAILY [facility] Last Admin: 12/05/18 10:50 Dose: 81 mg Enoxaparin Sodium (Lovenox -) 40 mg SQ DAILY [facility] Last Admin: 12/05/18 10:48 Dose: 40 mg Furosemide (Lasix Injection -) 40 mg IVPUSH BID@0600,1400 [facility] Last Admin: 12/05/18 05:59 Dose: 40 mg Vancomycin HCl (Vancomycin (Pre-Docked)) 1,000 mg in 250 mls @ 166.667 mls/hr IVPB Q24H [facility]; Protocol Last Admin: 12/05/18 10:50 Dose: 166.667 mls/hr Insulin Aspart (Novolog Vial Sliding Scale -) 1 vial SQ ACHS [facility]; Protocol Last Admin: 12/05/18 06:02 Dose: Not Given Insulin Detemir (Levemir Vial) 10 units SQ HS [facility] Last Admin: 12/04/18 21:06 Dose: 10 unit Multivitamins/Minerals/Vitamin C (Tab-A-Vit -) 1 tab PO DAILY [facility] Last Admin: 12/05/18 10:52 Dose: 1 tab Mupirocin (Bactroban 2% Cream -) 1 applic TP BID [facility] Last Admin: 12/04/18 21:06 Dose: 1 applic Pantoprazole Sodium (Protonix -) 40 mg PO DAILY [facility] Last Admin: 12/05/18 10:47 Dose: 40 mg Ramipril (Altace -) 10 mg PO DAILY [facility] Last Admin: 12/05/18 10:49 Dose: 10 mg - Objective Vital Signs: Vital Signs Temperature 97.8 F 12/05/18 02:00 Pulse Rate 76 12/05/18 04:00 Respiratory Rate 18 12/05/18 04:00 Blood Pressure 131/57 L 12/05/18 04:00 O2 Sat by Pulse Oximetry (%) 96 12/05/18 09:00 Constitutional: Yes: No Distress, Obese Eyes: Yes: Conjunctiva Clear Cardiovascular: Yes: Regular Rate and Rhythm, S1, S2 Respiratory: Yes: CTA Bilaterally Gastrointestinal: Yes: Normal Bowel Sounds, Soft Extremities: Yes: Other (erythema R LE resolved) Edema: Yes Edema: LLE: 2+, RLE: 2+ Integumentary: Yes: Venous Stasis Changes Labs: CBC, BMP 12/04/18 05:25 12/04/18 05:25 Assessment/Plan CELLULITIS LE RESOLVED CHRONIC VENOUS STASIS ACUTE ON CHRONIC RESP FAILURE LEUKOCYTOSIS AZOTEMIA HX MRSA DISCONTINUE VANCOMYCIN
[2018-12-05] MEDS: MUPIROCIN CA 2% TOPICAL CREAM 15 GM TUBE TP SCH (12:00)
--- NOTE | 2018-12-05 12:24 | PN ---
Progress Note (short form) - Note Progress Note: PULMONARY Off steroids. Breathing continues to improve. Vital Signs Period Temp Pulse Resp BP Sys/Frank Pulse Ox Last 24 Hr 97.8 F-98.4 F 74-82 16-20 118-144/55-94 96-100 Gen: NAD in chair Heart: RRR Lung: decreased breath sounds at the bases Abd: soft, nontender Ext: chronic changes CBC, BMP 12/04/18 05:25 12/04/18 05:25 Active Medications Albuterol/Ipratropium (Duoneb -) 1 amp NEB Q4H PRN PRN Reason: SHORTNESS OF BREATH Aspirin (Ecotrin -) 81 mg PO DAILY [facility] Last Admin: 12/05/18 10:50 Dose: 81 mg Enoxaparin Sodium (Lovenox -) 40 mg SQ DAILY [facility] Last Admin: 12/05/18 10:48 Dose: 40 mg Furosemide (Lasix Injection -) 40 mg IVPUSH BID@0600,1400 [facility] Last Admin: 12/05/18 05:59 Dose: 40 mg Vancomycin HCl (Vancomycin (Pre-Docked)) 1,000 mg in 250 mls @ 166.667 mls/hr IVPB Q24H [facility]; Protocol Last Admin: 12/05/18 10:50 Dose: 166.667 mls/hr Insulin Aspart (Novolog Vial Sliding Scale -) 1 vial SQ ACHS [facility]; Protocol Last Admin: 12/05/18 11:44 Dose: 6 unit Insulin Detemir (Levemir Vial) 10 units SQ HS [facility] Last Admin: 12/04/18 21:06 Dose: 10 unit Multivitamins/Minerals/Vitamin C (Tab-A-Vit -) 1 tab PO DAILY [facility] Last Admin: 12/05/18 10:52 Dose: 1 tab Mupirocin (Bactroban 2% Cream -) 1 applic TP BID [facility] Last Admin: 12/04/18 21:06 Dose: 1 applic Pantoprazole Sodium (Protonix -) 40 mg PO DAILY [facility] Last Admin: 12/05/18 10:47 Dose: 40 mg Ramipril (Altace -) 10 mg PO DAILY [facility] Last Admin: 12/05/18 10:49 Dose: 10 mg A/P Acute on Chronic Hypercapneic Respiratory Failure improving Acute on Chronic Diastolic Heart Failure Morbid Obesity Likely ZENIA/OHS r/o Cellulitis Acute on Chronic Renal Failure HTN DM - continue lasix - monitor urine output, creatinine - inhaled bronchodilators - O2 to keep Spo2 88-92% - on empiric antibiotics - will need outpt PFTs, PSG - DVT prophylaxis
--- NOTE | 2018-12-05 15:32 | PN ---
Progress Note (short form) - Note Progress Note: s: no chest pain, palps, dizziness, dyspnea. Current Medications Albuterol/Ipratropium (Duoneb -) 1 amp NEB Q4H PRN PRN Reason: SHORTNESS OF BREATH Aspirin (Ecotrin -) 81 mg PO DAILY [facility] Last Admin: 12/05/18 10:50 Dose: 81 mg Enoxaparin Sodium (Lovenox -) 40 mg SQ DAILY [facility] Last Admin: 12/05/18 10:48 Dose: 40 mg Furosemide (Lasix Injection -) 40 mg IVPUSH BID@0600,1400 [facility] Last Admin: 12/05/18 14:38 Dose: 40 mg Vancomycin HCl (Vancomycin (Pre-Docked)) 1,000 mg in 250 mls @ 166.667 mls/hr IVPB Q24H [facility]; Protocol Last Admin: 12/05/18 10:50 Dose: 166.667 mls/hr Insulin Aspart (Novolog Vial Sliding Scale -) 1 vial SQ ACHS [facility]; Protocol Last Admin: 12/05/18 11:44 Dose: 6 unit Insulin Detemir (Levemir Vial) 10 units SQ HS [facility] Last Admin: 12/04/18 21:06 Dose: 10 unit Multivitamins/Minerals/Vitamin C (Tab-A-Vit -) 1 tab PO DAILY [facility] Last Admin: 12/05/18 10:52 Dose: 1 tab Mupirocin (Bactroban 2% Ointment -) 1 applic TP BID [facility] Pantoprazole Sodium (Protonix -) 40 mg PO DAILY [facility] Last Admin: 12/05/18 10:47 Dose: 40 mg Ramipril (Altace -) 10 mg PO DAILY [facility] Last Admin: 12/05/18 10:49 Dose: 10 mg Vital Signs Period Temp Pulse Resp BP Sys/Frank Pulse Ox Last 24 Hr 97.8 F-98.4 F 74-80 16-18 118-131/55-94 96-100 Constitutional: Yes: No Distress, Calm, Obese Eyes: No: Sclera Icterus HENT: No: Nasal Congestion Cardiovascular: Yes: Regular Rate and Rhythm, JVD (possible (TDS habitus)), S1, S2, Other (PMI non diplaced). No: Gallop, Murmur Respiratory: Yes: CTA Bilaterally. No: Accessory Muscle Use, Rales Gastrointestinal: Yes: Normal Bowel Sounds, Soft. No: Tenderness Musculoskeletal: Yes: Other (No kyphosis) Extremities: No: Cold, Cyanosis Edema: Yes (1+ LE) Integumentary: No: Jaundice Neurological: Yes: Alert. No: Seizure Psychiatric: No: Agitated Assessment/Plan tele: NSR, PVCs IMP: -Acute on chronic diastolic HF -Acute on chronic hypercapneic resp failure, suspected underlying ZENIA, ? obesity -hypoventilation--requiring NIPPV here with drowsiness on DOA -Chronic HTN, suspected hypertensive heart disease -DM -Chronic venous stasis, ? cellulitis -Acute on chronic renal insuffiency REC: -sob improving continue IV lasix (40 BID), daily weights -echo nl LV function, nl RV, mild aortic valve sclerosis -BP controlled, cont JOSESITO-I -O2, NIPPV per crit care team -DVT prophylaxis. -treatment of venous stasis and possible superimposed cellulitis as per primary -will plan ischemia eval when euvolemic (may be done as outpt if no sx/s of angina/ischemia here).
[2018-12-05] MEDS: ALBUTEROL SO4 2.5/IPRATROPIUM 0.5 INH SOL 3 ML VIAL.NEB. NEB PRN (20:17)
[2018-12-05] MEDS: INSULIN (LEVEMIR) 100 UNITS/ML UNITS SQ SCH (21:29)
[2018-12-05] MEDS: MUPIROCIN 2% TOPICAL OINTMENT 22 GM TUBE TP SCH (23:27)
[2018-12-06] MEDS: FUROSEMIDE 40 MG/4 ML INJECTABLE VIAL IVPUSH SCH ×2 (05:37→14:27)
[2018-12-06] MEDS ORDERED: INSULIN (NOVOLOG) ASPART 100 UNITS/ML 10ML VIAL ONE ×4 (06:59→20:33)
[2018-12-06] MEDS: INSULIN SLIDING SCALE (NOVOLOG) 1 VIAL SQ SCH ×4 (07:02→21:37)
[2018-12-06] MEDS ORDERED: INSULIN (LEVEMIR) 100 UNITS/ML UNITS SQ ONE (07:12)
[2018-12-06 07:51] LABS: BLOOD UREA NITROGEN 59.9 mg/dL (7-18); CALCIUM 8.2 mg/dL (8.5-10.1); CREATININE 1.5 mg/dL (0.55-1.3); POTASSIUM 4.1 mmol/L (3.5-5.1)
[2018-12-06] MEDS ORDERED: RAMIPRIL 5 MG CAPSULE (FP) PO SCH (10:00)
--- NOTE | 2018-12-06 10:46 | PN ---
Progress Note, Physician Chief Complaint: seen and examined No CP or SOB - Current Medication List Current Medications: Active Medications Albuterol/Ipratropium (Duoneb -) 1 amp NEB Q4H PRN PRN Reason: SHORTNESS OF BREATH Last Admin: 12/05/18 20:17 Dose: 1 amp Aspirin (Ecotrin -) 81 mg PO DAILY [facility] Enoxaparin Sodium (Lovenox -) 40 mg SQ DAILY [facility] Furosemide (Lasix Injection -) 40 mg IVPUSH BID@0600,1400 [facility] Last Admin: 12/06/18 05:37 Dose: 40 mg Vancomycin HCl (Vancomycin (Pre-Docked)) 1,000 mg in 250 mls @ 166.667 mls/hr IVPB Q24H [facility]; Protocol Insulin Aspart (Novolog Vial Sliding Scale -) 1 vial SQ ACHS [facility]; Protocol Last Admin: 12/06/18 07:02 Dose: 2 unit Insulin Detemir (Levemir Vial) 10 units SQ HS [facility] Last Admin: 12/05/18 21:29 Dose: 10 unit Multivitamins/Minerals/Vitamin C (Tab-A-Vit -) 1 tab PO DAILY [facility] Mupirocin (Bactroban 2% Ointment -) 1 applic TP BID [facility] Last Admin: 12/05/18 23:27 Dose: 1 applic Pantoprazole Sodium (Protonix -) 40 mg PO DAILY [facility] Ramipril (Altace -) 10 mg PO DAILY [facility] - Objective Vital Signs: Vital Signs Temperature 97.4 F L 12/06/18 06:00 Pulse Rate 54 L 12/06/18 06:00 Respiratory Rate 20 12/06/18 06:00 Blood Pressure 140/50 L 12/06/18 06:00 O2 Sat by Pulse Oximetry (%) 98 12/05/18 21:00 Constitutional: Yes: No Distress Eyes: Yes: Conjunctiva Clear Cardiovascular: Yes: Regular Rate and Rhythm Respiratory: Yes: CTA Bilaterally Gastrointestinal: Yes: Soft, Abdomen, Obese Edema: Yes Edema: LLE: 1+ (improved), RLE: 1+ (improved) Neurological: Yes: Alert, Oriented ...Motor Strength: WNL Labs: CBC, BMP 12/04/18 05:25 12/06/18 06:24 - ....Imaging EKG: Image Reviewed Assessment/Plan Assessment/Plan tele: NSR, PVCs IMP: -Acute on chronic diastolic HF: -Acute on chronic hypercapneic resp failure, suspected underlying ZENIA, ? obesity -hypoventilation--requiring NIPPV here with drowsiness on DOA -Chronic HTN, suspected hypertensive heart disease -DM -Chronic venous stasis, ? cellulitis -Acute on chronic renal insuffiency REC: -sob improving continue IV lasix (40 BID), daily weights. Plan to switch to PO tomorrow - 80mg PO daily -echo nl LV function, nl RV, mild aortic valve sclerosis (systolic murmur) -BP at times low, decrease Ramipril to 5mg -O2, NIPPV per crit care team -DVT prophylaxis. -treatment of venous stasis and possible superimposed cellulitis as per primary -Lexiscan MPI Sunday if remains inpatient.
[2018-12-06] MEDS: VANCOMYCIN 1 GRAM (PRE-DOCKED) 1,000 MG/250 ML BAG IVPB SCH (11:13)
[2018-12-06] MEDS: MULTIVITAMINS (DAILY MVI) TABLET (FP) PO SCH (11:17)
[2018-12-06] MEDS: ENOXAPARIN NA (PORCINE) 40 MG/0.4 ML DISP.SYRIN SQ SCH (11:17)
[2018-12-06] MEDS: PANTOPRAZOLE 40 MG TABLET (FP) PO SCH (11:18)
[2018-12-06] MEDS: RAMIPRIL 5 MG CAPSULE (FP) PO SCH (11:18)
[2018-12-06] MEDS: ASPIRIN COATED 81 MG TABLET.EC PO SCH (11:18)
--- NOTE | 2018-12-06 12:22 | PN ---
Progress Note (short form) - Note Progress Note: pt seen/ examined chart reviewed all f/u noted/ appreciated Sitting in chair alert/ awake Vital Signs Temp 97.4 F L 12/06/18 06:00 Pulse 54 L 12/06/18 06:00 Resp 20 12/06/18 06:00 BP 140/50 L 12/06/18 06:00 Pulse Ox 98 12/05/18 21:00 Intake & Output 12/05/18 12/06/18 12/06/18 23:59 11:59 23:59 Intake Total 990 200 Output Total 750 300 Balance 240 -100 Weight 217 lb 9.6 oz Intake: IVPB 250 Oral 740 200 Output: Urine 750 300 Void 750 300 Other: Voiding Method Toilet # Unmeasured Voids Void 2 Bowel Movement No # Bowel Movements 2 Weight Measurement Method Built in [facility] Active Medications Albuterol/Ipratropium (Duoneb -) 1 amp NEB Q4H PRN PRN Reason: SHORTNESS OF BREATH Last Admin: 12/05/18 20:17 Dose: 1 amp Aspirin (Ecotrin -) 81 mg PO DAILY [facility] Last Admin: 12/06/18 11:18 Dose: 81 mg Enoxaparin Sodium (Lovenox -) 40 mg SQ DAILY [facility] Last Admin: 12/06/18 11:17 Dose: 40 mg Furosemide (Lasix Injection -) 40 mg IVPUSH BID@0600,1400 [facility] Last Admin: 12/06/18 05:37 Dose: 40 mg Vancomycin HCl (Vancomycin (Pre-Docked)) 1,000 mg in 250 mls @ 166.667 mls/hr IVPB Q24H [facility]; Protocol Last Admin: 12/06/18 11:13 Dose: 166.667 mls/hr Insulin Aspart (Novolog Vial Sliding Scale -) 1 vial SQ ACHS [facility]; Protocol Last Admin: 12/06/18 11:19 Dose: 4 unit Insulin Detemir (Levemir Vial) 10 units SQ HS [facility] Last Admin: 12/05/18 21:29 Dose: 10 unit Multivitamins/Minerals/Vitamin C (Tab-A-Vit -) 1 tab PO DAILY [facility] Last Admin: 12/06/18 11:17 Dose: 1 tab Mupirocin (Bactroban 2% Ointment -) 1 applic TP BID [facility] Last Admin: 12/05/18 23:27 Dose: 1 applic Pantoprazole Sodium (Protonix -) 40 mg PO DAILY [facility] Last Admin: 12/06/18 11:18 Dose: 40 mg Ramipril (Altace -) 5 mg PO DAILY [facility] Last Admin: 12/06/18 11:18 Dose: 5 mg CBC, BMP 12/04/18 05:25 12/06/18 06:24 Physical Exam. S1 S2 RRR Lungs decreased breath sounds B/L abd- soft, obese, NT edema + rt leg erythema, edema >left-- decreased chronic venous changes PLAN Better iv lasix continue with meds OOB Pt will follow
[2018-12-06 12:23] VITALS: BMI 32.0
[2018-12-06] MEDS: MUPIROCIN 2% TOPICAL OINTMENT 22 GM TUBE TP SCH ×2 (14:27→21:40)
--- NOTE | 2018-12-06 15:09 | PN ---
Progress Note, Physician History of Present Illness: pulmonary alert,comfortable,oob-chair,-sob,-cp,-cough. refusing bipap - Current Medication List Current Medications: Active Medications Albuterol/Ipratropium (Duoneb -) 1 amp NEB Q4H PRN PRN Reason: SHORTNESS OF BREATH Last Admin: 12/05/18 20:17 Dose: 1 amp Aspirin (Ecotrin -) 81 mg PO DAILY [facility] Last Admin: 12/06/18 11:18 Dose: 81 mg Enoxaparin Sodium (Lovenox -) 40 mg SQ DAILY [facility] Last Admin: 12/06/18 11:17 Dose: 40 mg Furosemide (Lasix Injection -) 40 mg IVPUSH BID@0600,1400 [facility] Last Admin: 12/06/18 14:27 Dose: 40 mg Vancomycin HCl (Vancomycin (Pre-Docked)) 1,000 mg in 250 mls @ 166.667 mls/hr IVPB Q24H [facility]; Protocol Last Admin: 12/06/18 11:13 Dose: 166.667 mls/hr Insulin Aspart (Novolog Vial Sliding Scale -) 1 vial SQ ACHS [facility]; Protocol Last Admin: 12/06/18 11:19 Dose: 4 unit Insulin Detemir (Levemir Vial) 10 units SQ HS [facility] Last Admin: 12/05/18 21:29 Dose: 10 unit Multivitamins/Minerals/Vitamin C (Tab-A-Vit -) 1 tab PO DAILY [facility] Last Admin: 12/06/18 11:17 Dose: 1 tab Mupirocin (Bactroban 2% Ointment -) 1 applic TP BID [facility] Last Admin: 12/06/18 14:27 Dose: 1 applic Pantoprazole Sodium (Protonix -) 40 mg PO DAILY [facility] Last Admin: 12/06/18 11:18 Dose: 40 mg Ramipril (Altace -) 5 mg PO DAILY [facility] Last Admin: 12/06/18 11:18 Dose: 5 mg - Objective Vital Signs: Vital Signs Temperature 97.4 F L 12/06/18 06:00 Pulse Rate 54 L 12/06/18 06:00 Respiratory Rate 20 12/06/18 06:00 Blood Pressure 140/50 L 12/06/18 06:00 O2 Sat by Pulse Oximetry (%) 98 12/05/18 21:00 Constitutional: Yes: Well Nourished, Calm Eyes: Yes: WNL HENT: Yes: WNL Neck: Yes: WNL Cardiovascular: Yes: Regular Rate and Rhythm, S1, S2 Respiratory: Yes: CTA Bilaterally Gastrointestinal: Yes: Normal Bowel Sounds, Soft Extremities: Yes: WNL, Other (chronic changes bilaterally) Edema: Yes Labs: CBC, BMP 12/04/18 05:25 12/06/18 06:24 Problem List - Problems (1) Acute and chronic respiratory failure with hypercapnia Code(s): J96.22 - ACUTE AND CHRONIC RESPIRATORY FAILURE WITH HYPERCAPNIA (2) CHF exacerbation Code(s): I50.9 - HEART FAILURE, UNSPECIFIED Qualifiers: Heart failure type: diastolic Qualified Code(s): I50.33 - Acute on chronic diastolic (congestive) heart failure (3) Hypoxia Code(s): R09.02 - HYPOXEMIA (4) Dermatitis Code(s): L30.9 - DERMATITIS, UNSPECIFIED (5) Diabetes Code(s): E11.9 - TYPE 2 DIABETES MELLITUS WITHOUT COMPLICATIONS (6) KELLI (acute kidney injury) Code(s): N17.9 - ACUTE KIDNEY FAILURE, UNSPECIFIED Assessment/Plan A/P Acute on Chronic Hypercapneic Respiratory Failure improving Acute on Chronic Diastolic Heart Failure Morbid Obesity Likely ZENIA/OHS r/o Cellulitis Acute on Chronic Renal Failure HTN DM - lasix - monitor urine output, creatinine - inhaled bronchodilators - O2 to keep Spo2 88-92% - empiric antibiotics - will need outpt PFTs, PSG - DVT prophylaxis DR ANGEL
[2018-12-06] MEDS: ALBUTEROL SO4 2.5/IPRATROPIUM 0.5 INH SOL 3 ML VIAL.NEB. NEB PRN (20:15)
[2018-12-06] MEDS: INSULIN (LEVEMIR) 100 UNITS/ML UNITS SQ SCH (21:39)
[2018-12-07] MEDS: FUROSEMIDE 40 MG/4 ML INJECTABLE VIAL IVPUSH SCH (05:55)
[2018-12-07] MEDS: INSULIN SLIDING SCALE (NOVOLOG) 1 VIAL SQ SCH ×4 (06:00→21:32)
[2018-12-07 07:42] LABS: BASO % 0.2 % (0-2.0); HEMATOCRIT 36.6 % (35.4-49); HEMOGLOBIN 11.5 GM/dL (11.7-16.9); LYMPH % 8.4 % (8-40); MCHC 31.5 g/dl (32.0-35.9); MEAN CELL VOLUME 88.9 fl (80-96); MEAN PLT VOLUME 8.6 fl (7.5-11.1); MONO % 9.7 % (3.8-10.2); NEUT % 78.7 % (42.8-82.8); RBC 4.12 M/mm3 (4.00-5.60); RDW 15.6 % (11.9-15.9); WHITE BLOOD COUNT 8.3 K/mm3 (4.0-10.0)
[2018-12-07 07:52] LABS: ALBUMIN 3.3 g/dl (3.4-5.0); BILIRUBIN,TOTAL 0.7 mg/dL (0.2-1); BLOOD UREA NITROGEN 42.1 mg/dL (7-18); CALCIUM 8.5 mg/dL (8.5-10.1); CREATININE 1.2 mg/dL (0.55-1.3); POTASSIUM 4.1 mmol/L (3.5-5.1); TOT PROT 7.3 g/dl (6.4-8.2)
[2018-12-07] MEDS: VANCOMYCIN 1 GRAM (PRE-DOCKED) 1,000 MG/250 ML BAG IVPB SCH (08:10)
[2018-12-07] MEDS ORDERED: PT OWN MED DRAWER 7, Y5N ONE (09:12)
[2018-12-07] MEDS: RAMIPRIL 5 MG CAPSULE (FP) PO SCH (09:15)
[2018-12-07] MEDS: PANTOPRAZOLE 40 MG TABLET (FP) PO SCH (09:15)
[2018-12-07] MEDS: ENOXAPARIN NA (PORCINE) 40 MG/0.4 ML DISP.SYRIN SQ SCH (09:15)
[2018-12-07] MEDS: MULTIVITAMINS (DAILY MVI) TABLET (FP) PO SCH (09:15)
[2018-12-07] MEDS: ASPIRIN COATED 81 MG TABLET.EC PO SCH (09:15)
[2018-12-07] MEDS: MUPIROCIN 2% TOPICAL OINTMENT 22 GM TUBE TP SCH ×2 (09:16→21:32)
[2018-12-07 09:19] LABS: PLATELET COUNT 207 K/MM3 (134-434)
--- NOTE | 2018-12-07 10:00 | PN ---
Progress Note, Physician - Current Medication List Current Medications: Active Medications Albuterol/Ipratropium (Duoneb -) 1 amp NEB Q4H PRN PRN Reason: SHORTNESS OF BREATH Last Admin: 12/06/18 20:15 Dose: 1 amp Aspirin (Ecotrin -) 81 mg PO DAILY [facility] Last Admin: 12/07/18 09:15 Dose: 81 mg Enoxaparin Sodium (Lovenox -) 40 mg SQ DAILY [facility] Last Admin: 12/07/18 09:15 Dose: 40 mg Furosemide (Lasix Injection -) 40 mg IVPUSH BID@0600,1400 [facility] Last Admin: 12/07/18 05:55 Dose: 40 mg Vancomycin HCl (Vancomycin (Pre-Docked)) 1,000 mg in 250 mls @ 166.667 mls/hr IVPB Q24H [facility]; Protocol Last Admin: 12/07/18 08:10 Dose: 166.667 mls/hr Insulin Aspart (Novolog Vial Sliding Scale -) 1 vial SQ ACHS [facility]; Protocol Last Admin: 12/07/18 06:00 Dose: 2 unit Insulin Detemir (Levemir Vial) 10 units SQ HS [facility] Last Admin: 12/06/18 21:39 Dose: 10 unit Multivitamins/Minerals/Vitamin C (Tab-A-Vit -) 1 tab PO DAILY [facility] Last Admin: 12/07/18 09:15 Dose: 1 tab Mupirocin (Bactroban 2% Ointment -) 1 applic TP BID [facility] Last Admin: 12/07/18 09:16 Dose: 1 applic Pantoprazole Sodium (Protonix -) 40 mg PO DAILY [facility] Last Admin: 12/07/18 09:15 Dose: 40 mg Ramipril (Altace -) 5 mg PO DAILY [facility] Last Admin: 12/07/18 09:15 Dose: 5 mg - Objective Vital Signs: Vital Signs Temperature 99 F 12/07/18 06:00 Pulse Rate 64 12/07/18 06:00 Respiratory Rate 20 12/07/18 06:00 Blood Pressure 138/60 12/07/18 06:00 O2 Sat by Pulse Oximetry (%) 96 12/06/18 22:19 Labs: CBC, BMP 12/07/18 06:00 12/07/18 06:00 Assessment/Plan Echo 11/27: nl LVEF, mild LVH. nl RV. nl LA. nl valve fxn. no PH noted (peak tech TR gradient 25). IMP: -Acute on chronic diastolic HF: -Acute on chronic hypercapneic resp failure, suspected underlying ZENIA, ? obesity -hypoventilation--requiring NIPPV here with drowsiness on DOA -Chronic HTN, suspected hypertensive heart disease -DM -Chronic venous stasis, ? cellulitis -Acute on chronic renal insuffiency--likely cardiorenal syndrome REC: -sob resolved (feels back to baseline). ditto for edema (at baseline). no reliable wt trend. cxr 12/04 congestive findings resolving. BUN/creat improving. change lasix 40 iv bid to 80mg PO daily -Ramipril decreased to 5mg for soft BPs here--currently bp ok, observe trend -O2, NIPPV per pulm -treatment of venous stasis and possible superimposed cellulitis as per primary -no angina, and pt with mult RFs for "run of the mill" diast HF (including "i eat like a slob"). ischemia eval is routine here, to complete the workup--may be done as outp (Lexiscan MPI). plan d/w'd dr rosas and pt, who verbalizes understanding and agrees to follow up with us -disc'd diet changes including sodium restriction--states he is motivated to improve
--- NOTE | 2018-12-07 11:58 | PN ---
Progress Note, Physician History of Present Illness: pulmonary alert,oob-chair,-sob,-cp,-cough - Current Medication List Current Medications: Active Medications Albuterol/Ipratropium (Duoneb -) 1 amp NEB Q4H PRN PRN Reason: SHORTNESS OF BREATH Last Admin: 12/06/18 20:15 Dose: 1 amp Aspirin (Ecotrin -) 81 mg PO DAILY [facility] Last Admin: 12/07/18 09:15 Dose: 81 mg Enoxaparin Sodium (Lovenox -) 40 mg SQ DAILY [facility] Last Admin: 12/07/18 09:15 Dose: 40 mg Furosemide (Lasix Injection -) 40 mg IVPUSH BID@0600,1400 [facility] Last Admin: 12/07/18 05:55 Dose: 40 mg Vancomycin HCl (Vancomycin (Pre-Docked)) 1,000 mg in 250 mls @ 166.667 mls/hr IVPB Q24H [facility]; Protocol Last Admin: 12/07/18 08:10 Dose: 166.667 mls/hr Insulin Aspart (Novolog Vial Sliding Scale -) 1 vial SQ ACHS [facility]; Protocol Last Admin: 12/07/18 11:17 Dose: 6 unit Insulin Detemir (Levemir Vial) 10 units SQ HS [facility] Last Admin: 12/06/18 21:39 Dose: 10 unit Multivitamins/Minerals/Vitamin C (Tab-A-Vit -) 1 tab PO DAILY [facility] Last Admin: 12/07/18 09:15 Dose: 1 tab Mupirocin (Bactroban 2% Ointment -) 1 applic TP BID [facility] Last Admin: 12/07/18 09:16 Dose: 1 applic Pantoprazole Sodium (Protonix -) 40 mg PO DAILY [facility] Last Admin: 12/07/18 09:15 Dose: 40 mg Ramipril (Altace -) 5 mg PO DAILY [facility] Last Admin: 12/07/18 09:15 Dose: 5 mg - Objective Vital Signs: Vital Signs Temperature 97.7 F 12/07/18 07:40 Pulse Rate 82 12/07/18 07:40 Respiratory Rate 20 12/07/18 07:40 Blood Pressure 131/78 12/07/18 07:40 O2 Sat by Pulse Oximetry (%) 96 12/06/18 22:19 Constitutional: Yes: Well Nourished, Calm Eyes: Yes: WNL HENT: Yes: WNL Neck: Yes: WNL Cardiovascular: Yes: Regular Rate and Rhythm, S1, S2 Respiratory: Yes: CTA Bilaterally Gastrointestinal: Yes: Normal Bowel Sounds, Soft Extremities: Yes: WNL Edema: Yes Labs: CBC, BMP 12/07/18 06:00 12/07/18 06:00 Problem List - Problems (1) Acute and chronic respiratory failure with hypercapnia Code(s): J96.22 - ACUTE AND CHRONIC RESPIRATORY FAILURE WITH HYPERCAPNIA (2) CHF exacerbation Code(s): I50.9 - HEART FAILURE, UNSPECIFIED Qualifiers: Heart failure type: diastolic Qualified Code(s): I50.33 - Acute on chronic diastolic (congestive) heart failure (3) Hypoxia Code(s): R09.02 - HYPOXEMIA (4) Dermatitis Code(s): L30.9 - DERMATITIS, UNSPECIFIED (5) Diabetes Code(s): E11.9 - TYPE 2 DIABETES MELLITUS WITHOUT COMPLICATIONS (6) KELLI (acute kidney injury) Code(s): N17.9 - ACUTE KIDNEY FAILURE, UNSPECIFIED Assessment/Plan A/P Acute on Chronic Hypercapneic Respiratory Failure improving Acute on Chronic Diastolic Heart Failure Morbid Obesity Likely ZENIA/OHS r/o Cellulitis Acute on Chronic Renal Failure HTN DM - lasix - monitor urine output, creatinine - inhaled bronchodilators - O2 to keep Spo2 88-92% - empiric antibiotics - will need outpt PFTs, PSG - DVT prophylaxis DR ANGEL
--- NOTE | 2018-12-07 12:34 | PN ---
Progress Note (short form) - Note Progress Note: pt seen/ examined awake/ comfortable Vital Signs Temp 97.7 F 12/07/18 07:40 Pulse 82 12/07/18 07:40 Resp 20 12/07/18 07:40 BP 131/78 12/07/18 07:40 Pulse Ox 96 12/06/18 22:19 Intake & Output 12/06/18 12/07/18 12/07/18 23:59 11:59 23:59 Output Total 300 Balance -300 Weight 218 lb 1.6 oz Output: Urine 300 Void 300 Other: Voiding Method Urinal Toilet # Unmeasured Voids Void 2 1 Weight Measurement Method Built in [facility] Active Medications Albuterol/Ipratropium (Duoneb -) 1 amp NEB Q4H PRN PRN Reason: SHORTNESS OF BREATH Last Admin: 12/06/18 20:15 Dose: 1 amp Aspirin (Ecotrin -) 81 mg PO DAILY [facility] Last Admin: 12/07/18 09:15 Dose: 81 mg Enoxaparin Sodium (Lovenox -) 40 mg SQ DAILY [facility] Last Admin: 12/07/18 09:15 Dose: 40 mg Furosemide (Lasix Injection -) 40 mg IVPUSH BID@0600,1400 [facility] Last Admin: 12/07/18 05:55 Dose: 40 mg Vancomycin HCl (Vancomycin (Pre-Docked)) 1,000 mg in 250 mls @ 166.667 mls/hr IVPB Q24H [facility]; Protocol Last Admin: 12/07/18 08:10 Dose: 166.667 mls/hr Insulin Aspart (Novolog Vial Sliding Scale -) 1 vial SQ ACHS [facility]; Protocol Last Admin: 12/07/18 11:17 Dose: 6 unit Insulin Detemir (Levemir Vial) 10 units SQ HS [facility] Last Admin: 12/06/18 21:39 Dose: 10 unit Multivitamins/Minerals/Vitamin C (Tab-A-Vit -) 1 tab PO DAILY [facility] Last Admin: 12/07/18 09:15 Dose: 1 tab Mupirocin (Bactroban 2% Ointment -) 1 applic TP BID [facility] Last Admin: 12/07/18 09:16 Dose: 1 applic Pantoprazole Sodium (Protonix -) 40 mg PO DAILY [facility] Last Admin: 12/07/18 09:15 Dose: 40 mg Ramipril (Altace -) 5 mg PO DAILY [facility] Last Admin: 12/07/18 09:15 Dose: 5 mg CBC, BMP 12/07/18 06:00 12/07/18 06:00 Physical Exam. S1 S2 RRR Lungs decreased breath sounds B/L abd- soft, obese, NT edema + rt leg erythema, edema >left-- decreased chronic venous changes PLAN Better iv lasix continue with meds OOB Pt will follow d/c vanco labs in am continue i/v lasix today d/c planning likely in am Problem List - Problems (1) Acute and chronic respiratory failure with hypercapnia Code(s): J96.22 - ACUTE AND CHRONIC RESPIRATORY FAILURE WITH HYPERCAPNIA (2) CHF exacerbation Code(s): I50.9 - HEART FAILURE, UNSPECIFIED Qualifiers: Heart failure type: diastolic Qualified Code(s): I50.33 - Acute on chronic diastolic (congestive) heart failure (3) Diabetes Code(s): E11.9 - TYPE 2 DIABETES MELLITUS WITHOUT COMPLICATIONS (4) Fluid overload Code(s): E87.70 - FLUID OVERLOAD, UNSPECIFIED Qualifiers: Hypervolemia type: unspecified Qualified Code(s): E87.70 - Fluid overload, unspecified (5) Hx MRSA infection Code(s): Z86.14 - PERSONAL HISTORY OF METHICILLIN RESIS STAPH INFECTION (6) Cellulitis of right leg Code(s): L03.115 - CELLULITIS OF RIGHT LOWER LIMB
[2018-12-07] MEDS: ALBUTEROL SO4 2.5/IPRATROPIUM 0.5 INH SOL 3 ML VIAL.NEB. NEB PRN (20:30)
[2018-12-07 20:35] VITALS: TEMP 98.1
[2018-12-07] MEDS: INSULIN (LEVEMIR) 100 UNITS/ML UNITS SQ SCH (21:32)
[2018-12-08] MEDS: INSULIN SLIDING SCALE (NOVOLOG) 1 VIAL SQ SCH ×2 (06:46→11:30)
[2018-12-08 08:24] LABS: BASO % 0.3 % (0-2.0); EOS % 3.4 % (0-4.5); HEMATOCRIT 37.7 % (35.4-49); HEMOGLOBIN 11.9 GM/dL (11.7-16.9); MCHC 31.6 g/dl (32.0-35.9); MEAN CELL VOLUME 88.6 fl (80-96); MONO % 8.8 % (3.8-10.2); NEUT % 80.5 % (42.8-82.8); RBC 4.25 M/mm3 (4.00-5.60); RDW 15.7 % (11.9-15.9); WHITE BLOOD COUNT 9.1 K/mm3 (4.0-10.0)
[2018-12-08 08:42] LABS: CALCIUM 8.7 mg/dL (8.5-10.1); CREATININE 1.3 mg/dL (0.55-1.3); POTASSIUM 4.1 mmol/L (3.5-5.1)
[2018-12-08 09:17] LABS: PLATELET COUNT 200 K/MM3 (134-434)
[2018-12-08] MEDS: RAMIPRIL 5 MG CAPSULE (FP) PO SCH (09:56)
[2018-12-08] MEDS: ASPIRIN COATED 81 MG TABLET.EC PO SCH (09:56)
[2018-12-08] MEDS: ENOXAPARIN NA (PORCINE) 40 MG/0.4 ML DISP.SYRIN SQ SCH (09:57)
[2018-12-08] MEDS: MULTIVITAMINS (DAILY MVI) TABLET (FP) PO SCH (09:57)
[2018-12-08] MEDS: PANTOPRAZOLE 40 MG TABLET (FP) PO SCH (09:57)
[2018-12-08] MEDS: MUPIROCIN 2% TOPICAL OINTMENT 22 GM TUBE TP SCH (09:58)
[2018-12-08] MEDS ORDERED: FUROSEMIDE 40 MG TABLET (FP) PO SCH (10:00)
[2018-12-08 11:15] VITALS: BP 145/71; PULSE 85
[2018-12-08] MEDS ORDERED: INSULIN (NOVOLOG) ASPART 100 UNITS/ML 10ML VIAL ONE (11:23)
--- NOTE | 2018-12-08 11:37 | PN ---
Progress Note, Physician - Current Medication List Current Medications: Active Medications Albuterol/Ipratropium (Duoneb -) 1 amp NEB Q4H PRN PRN Reason: SHORTNESS OF BREATH Last Admin: 12/07/18 20:30 Dose: 1 amp Aspirin (Ecotrin -) 81 mg PO DAILY [facility] Last Admin: 12/08/18 09:56 Dose: 81 mg Enoxaparin Sodium (Lovenox -) 40 mg SQ DAILY [facility] Last Admin: 12/08/18 09:57 Dose: 40 mg Furosemide (Lasix -) 80 mg PO DAILY [facility] Last Admin: 12/08/18 09:56 Dose: 80 mg Insulin Aspart (Novolog Vial Sliding Scale -) 1 vial SQ ACHS [facility]; Protocol Last Admin: 12/08/18 11:30 Dose: 4 unit Insulin Detemir (Levemir Vial) 10 units SQ HS [facility] Last Admin: 12/07/18 21:32 Dose: 10 unit Multivitamins/Minerals/Vitamin C (Tab-A-Vit -) 1 tab PO DAILY [facility] Last Admin: 12/08/18 09:57 Dose: 1 tab Mupirocin (Bactroban 2% Ointment -) 1 applic TP BID [facility] Last Admin: 12/08/18 09:58 Dose: 1 applic Pantoprazole Sodium (Protonix -) 40 mg PO DAILY [facility] Last Admin: 12/08/18 09:57 Dose: 40 mg Ramipril (Altace -) 5 mg PO DAILY [facility] Last Admin: 12/08/18 09:56 Dose: 5 mg - Objective Vital Signs: Vital Signs Temperature 98.1 F 12/08/18 08:50 Pulse Rate 85 12/08/18 08:50 Respiratory Rate 20 12/08/18 08:50 Blood Pressure 145/71 12/08/18 08:50 O2 Sat by Pulse Oximetry (%) 90 L 12/07/18 21:00 Labs: CBC, BMP 12/08/18 06:46 12/08/18 06:54 Problem List - Problems (1) Acute and chronic respiratory failure with hypercapnia Code(s): J96.22 - ACUTE AND CHRONIC RESPIRATORY FAILURE WITH HYPERCAPNIA (2) CHF exacerbation Code(s): I50.9 - HEART FAILURE, UNSPECIFIED Qualifiers: Heart failure type: diastolic Qualified Code(s): I50.33 - Acute on chronic diastolic (congestive) heart failure (3) Hypoxia Code(s): R09.02 - HYPOXEMIA (4) Dermatitis Code(s): L30.9 - DERMATITIS, UNSPECIFIED (5) Diabetes Code(s): E11.9 - TYPE 2 DIABETES MELLITUS WITHOUT COMPLICATIONS (6) KELLI (acute kidney injury) Code(s): N17.9 - ACUTE KIDNEY FAILURE, UNSPECIFIED Assessment/Plan A/P Acute on Chronic Hypercapneic Respiratory Failure improving Acute on Chronic Diastolic Heart Failure Morbid Obesity Likely ZENIA/OHS r/o Cellulitis Acute on Chronic Renal Failure HTN DM - lasix - monitor urine output, creatinine - inhaled bronchodilators - O2 to keep Spo2 88-92% - empiric antibiotics - will need outpt PFTs, PSG - DVT prophylaxis DR ANGEL
--- NOTE | 2018-12-08 13:24 | DS ---
Physical Examination Vital Signs: Vital Signs Temperature 98.1 F 12/08/18 08:50 Pulse Rate 85 12/08/18 08:50 Respiratory Rate 20 12/08/18 08:50 Blood Pressure 145/71 12/08/18 08:50 O2 Sat by Pulse Oximetry (%) 90 L 12/07/18 21:00 Findings/Remarks: pt seen/ examined feels well no complains Constitutional: Yes: No Distress, Calm Eyes: Yes: Conjunctiva Clear Neck: Yes: Supple Cardiovascular: Yes: Regular Rate and Rhythm Respiratory: Yes: Diminished Gastrointestinal: Yes: Soft, Abdomen, Obese Extremities: Yes: Other Edema: LLE: 1+, RLE: 1+ Neurological: Yes: Alert Psychiatric: Yes: Alert Labs: CBC, BMP 12/08/18 06:46 12/08/18 06:54 Discharge Summary Reason For Visit: ACUTE KIDNEY INJURY/HYPOXIA/HYPERVOLEMIA (ISO) Current Active Problems KELLI (acute kidney injury) (Acute) Acute and chronic respiratory failure with hypercapnia (Acute) CHF exacerbation (Acute) Diabetes (Acute) Fluid overload (Acute) Hx MRSA infection (Acute) Hypoxia (Acute) Hospital Course: 78 y/o man with a PMHx of Chronic Venous Stasis Ulcers B/L LE, PVD, HTN, HLD, NIDDM, Obesity, Former Smoker. Admitted for CHF Excerbation, Acute Respiratory Failure with Hypoxia and Hypercapnia, KELLI, Hematuria, Chronic Venous Stasis Ulcers for further evaluation of their emergent condition. Pt admitted initially to icu treated with i/v lasix, bipap, abx much better will d/c home today with close f/u in office, cardiology and wound care Pt in agreement Meds reconcilled will d/c metformin now-- cr borderline Discussed with nursing staff also Condition: Stable - Instructions Disposition: HOME - Home Medications Comprehensive Discharge Medication List: Ambulatory Orders Aspirin [Ecotrin] 81 mg PO DAILY 02/24/16 Ramipril 10 mg PO DAILY 02/24/16 Sitagliptin Phosphate [Januvia] 50 mg PO BID 02/24/16 Acetaminophen [Tylenol .Regular Strength -] 650 mg PO Q4H PRN #0 tablet Multivitamin [One-Daily Multi-Vitamin] 1 tab PO DAILY 09/27/18 Albuterol 2.5/Ipratropium 0.5 [Duoneb -] 1 amp NEB Q4H PRN amp 12/08/18 Furosemide [Lasix -] 40 mg PO BID #30 tablet 12/08/18 Furosemide [Lasix -] 80 mg PO DAILY tablet 12/08/18 Insulin (Levemir) [Levemir Vial] 10 units SQ HS units 12/08/18 Multivitamins [Multivit ([facility] Form[facility])] 1 tab PO DAILY tab 12/08/18 Mupirocin Ointment [Bactroban 2% Ointment -] 1 applic TP BID applic 12/08/18 Pantoprazole Sodium [Protonix -] 40 mg PO DAILY tablet.ec 12/08/18
== END 2018-12-08 14:32 | disposition home or self-care (01) | DRG 291 ==
LOC: JER 18:45 → JERBED 21:26 → JICU 12-01 13:10 → J2W 12-02 15:33 → J8W 12-05 17:15
PROVIDERS: ADMIT Internal Medicine; ATTEND Internal Medicine
DX: I13.0 Hypertensive heart and chronic kidney disease with heart failure and stage 1 through stage 4 chronic kidney disease, or unspecified chronic kidney disease (principal); J96.22 Acute and chronic respiratory failure with hypercapnia; I50.33 Acute on chronic diastolic (congestive) heart failure; N17.9 Acute kidney failure, unspecified; J98.11 Atelectasis; L03.115 Cellulitis of right lower limb; N18.9 Chronic kidney disease, unspecified; E11.9 Type 2 diabetes mellitus without complications; E66.01 Morbid (severe) obesity due to excess calories; I73.9 Peripheral vascular disease, unspecified; E87.70 Fluid overload, unspecified; Z68.33 Body mass index [BMI] 33.0-33.9, adult; E78.5 Hyperlipidemia, unspecified; D72.829 Elevated white blood cell count, unspecified; R31.9 Hematuria, unspecified
CPT/HCPCS: 36415; 36600; 71045-TC-FY; 80048; 80053; 81003; 82140; 82550; 82803; 82962; 83735; 83880; 84100; 84484; 85025; 85027; 93005; 93010; 93306-TC; 94640; 94660; 97116-GP; 97161-GP; 99285-25